=== PATIENT | male | born 1950 | race Caucasian/White ===

== ENCOUNTER → 2019-04-02 08:03 | Outpatient (BNVA) | payer OTHER, SELFPAY | PROVIDERS: Visit Provider Nurse Practitioner | DX: M47.819 Spondylosis without myelopathy or radiculopathy, site unspecified (principal); M51.36 Other intervertebral disc degeneration, lumbar region; G60.9 Hereditary and idiopathic neuropathy, unspecified; Z79.891 Long term (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 of opiate analgesic | CPT/HCPCS: 99213 ==

== ENCOUNTER → 2019-09-30 10:15 | Outpatient (BNVA) | payer OTHER, SELFPAY | PROVIDERS: PCP Emergency Medicine Emergency Medical Services; Visit Provider Anesthesiology | DX: M51.36 Other intervertebral disc degeneration, lumbar region (principal); M47.819 Spondylosis without myelopathy or radiculopathy, site unspecified; M54.9 Dorsalgia, unspecified; M50.30 Other cervical disc degeneration, unspecified cervical region; G60.9 Hereditary and idiopathic neuropathy, unspecified; Z79.891 Long term (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 of opiate analgesic | CPT/HCPCS: 99214 ==

== ENCOUNTER 2019-10-21 14:42 | Outpatient (CLI) | payer OTHER, SELFPAY ==
[2019-10-21 15:11] LABS: Basophils # 0.1 10^3/uL (0.0-0.1); Eosinophils # 0.2 10^3/uL (0.0-0.8); Eosinophils % 2.9 %; Hematocrit 42.4 % (42.0-52.0); Hemoglobin 13.6 g/dL (11.7-16.6); Lymphocytes # 2.3 10^3/uL (0.8-4.8); Lymphocytes % 33.8 %; Mean Corpuscular HGB Conc 32.1 g/dL (30.0-36.0); Mean Corpuscular Hemoglobin 28.9 pg (28.0-34.0); Mean Platelet Volume 9.9 fL (7.4-10.4); Monocytes # 0.5 10^3/uL (0.2-0.9); Monocytes % 7.1 %; Neutrophils # 3.79 10^3/uL (1.8-7.7); Neutrophils % 54.9 %; Nucleated Red Blood Cells % 0 %; Platelet Count 265 10^3/cmm (130-400); Red Blood Count 4.71 10^6/uL (4.1-5.3); Red Cell Distribution Width 12.6 % (12.1-15.1); White Blood Count 6.9 10^3/uL (4.0-10.0)
[2019-10-22 16:24] LABS: Bermuda Class 0; Bermuda Grass (G2) Ige <0.10 kU/L; Cat Dander (E1) Ige <0.10 kU/L; Cat Dander Class 0; Common Ragweed (Short) (W1) Ig 0.91 kU/L; Dog Dander (E5) Ige <0.10 kU/L; Dog Dander Class 0; Elm (T8) Ige <0.10 kU/L; Elm Class 0; English Plantain (W9) Ige 0.22 kU/L; English Plantain Class 0/1; Immunoglobulin E 586 kU/L (<OR=114); Immunoglobulin E 624 kU/L (<OR=114); Johnson Grass (G10) Ige 0.22 kU/L; Johnson Grass Cl 0/1; June Grass Class 0; June Grass(Kentucky Blue) (G8) <0.10 kU/L; Lamb'S Quarters (Goose Foot) 0.14 kU/L; Lamb'S Quarters Class 0/1; Maple (Box Elder) (T1) Ige <0.10 kU/L; Maple Class 0; Meadow Fescue (G4) Ige <0.10 kU/L; Meadow Fescue Class 0; Oak (T7) Ige 0.18 kU/L; Oak Class 0/1; Orchard Grass (Cocksfoot) (G3) <0.10 kU/L; Perennial Rye Grass (G5) Ige <0.10 kU/L; Perennial Rye Grass Class 0; Ragweeed Class 2; Rough Marsh Elder (W16) Ige 0.85 kU/L; Rough Marsh Elder Class 2; Sweet Vernal Class 0; Sweet Vernal Grass (G1) Ige <0.10 kU/L; Timothy Grass (G6) Ige 0.22 kU/L; Timothy Grass Class 0/1
[2019-10-23 16:44] LABS: Alternaria Alternata (M6) Ige <0.10 kU/L; Alternaria Class 0; D. Farinae Class 2; Dermatophagoides Class 2; Dermatophagoides Farinae (D2) 2.93 kU/L; Dermatophagoides Pteronyssinus 1.86 kU/L; House Dust (Greer) (H1) Ige 0.49 kU/L; House Dust (Hollister- Stier) 1.95 kU/L; House Dust Class 1; House Dust Class 2; Mucor Racemosus Class 0; Penicillium Class 0; Penicillium Notatum (M1) Ige <0.10 kU/L
== END 2019-10-21 14:43 | disposition home or self-care (01) ==
LOC: LAB 14:43
PROVIDERS: PCP Emergency Medicine Emergency Medical Services; Visit Provider Internal Medicine Pulmonary Disease
DX: R06.02 Shortness of breath (principal); M79.89 Other specified soft tissue disorders
CPT/HCPCS: 82785; 85025; 86003

== ENCOUNTER → 2019-11-09 09:57 | Outpatient (BNVA) | payer OTHER, SELFPAY | PROVIDERS: PCP Emergency Medicine Emergency Medical Services; Visit Provider Internal Medicine | DX: Z11.59 Encounter for screening for other viral diseases (principal) | CPT/HCPCS: 87635 ==

== ENCOUNTER 2019-11-12 09:15 | Outpatient (CLI) | payer OTHER, SELFPAY ==
--- NOTE | 2019-11-12 09:30 | USCV_ITS ---
Brody Phan Age: 69 Gender: M : 1950 Exam Date: 11/12/2019 09:26 Ordering Phys: Fazal Bello MD Technologist: Tonia Victoria [place] [facility] [place] SOB BP: 130 / 70 HR: 93 Rhythm: Sinus Technical Quality: Adequate MEASUREMENTS (Male / Female) Normal Values 2D ECHO LV Diastolic Diameter PLAX 3.4 cm 4.2 - 5.9 / 3.9 - 5.3 cm LV Systolic Diameter PLAX 3.0 cm LV Chamber Size 3.5 cm IVS Diastolic Thickness 1.8 cm 0.6 - 1.0 / 0.6 - 0.9 cm IVS Systolic Thickness 1.7 cm LVPW Diastolic Thickness 1.3 cm 0.6 - 1.0 / 0.6 - 0.9 cm LVPW Systolic Thickness 1.6 cm RV Chamber Size 3.8 cm LVOT Diameter 2.0 cm LV Ejection Fraction 2D Teich 22.8 % LV Ejection Fraction MOD 2C 80.2 % LV Ejection Fraction 2C AL 80.8 % LA Diameter 4.2 cm LA Width 2.8 cm LA Height 4.0 cm RA Width 3.7 cm RA Height 3.7 cm Aorta at Sinotubular Diameter 3.5 cm M-MODE LV Diastolic Diameter MM 5.1 cm 4.2 - 5.9 / 3.9 - 5.3 cm LV Systolic Diameter MM 2.8 cm LV Ejection Fraction MM Teich 77.2 % IVS Diastolic Thickness MM 0.9 cm 0.6 - 1.0 / 0.6 - 0.9 cm IVS Systolic Thickness MM 1.5 cm LVPW Diastolic Thickness MM 0.8 cm 0.6 - 1.0 / 0.6 - 0.9 cm LVPW Systolic Thickness MM 2.1 cm RV Diastolic Diameter MM 1.1 cm Aortic Annulus Diameter 3.2 cm LA Ao Ratio MM 1.3 MV E Point Septal Separation 0.7 cm DOPPLER AV Peak Velocity 158.0 cm/s LVOT Peak Velocity 110.0 cm/s AV Area Cont Eq vti 2.4 cm squared AV Area Cont Eq pk 2.3 cm squared MV Area PHT 3.7 cm squared Mitral E to A Ratio 0.8 MV E' Velocity 10.0 cm/s Mitral E to MV E' Ratio 8.0 Mitral E to LV E' Lateral Ratio 8.1 Mitral E to LV E' Septal Ratio 8.0 TR Peak Velocity 147.6 cm/s TR Peak Gradient 8.7 mmHg TR Mean Velocity 115.9 cm/s TR Mean Gradient 5.5 mmHg TR Velocity Time Integral 34.3 cm PV Peak Velocity 70.0 cm/s RV Acceleration Time 0.2 s RV Ejection Time 0.3 s RV AcT/ET 0.5 FINDINGS Left Ventricle Normal left ventricular size, systolic function and wall thickness, with no regional wall motion abnormalities. Left ventricular ejection fraction is estimated at 64%. Normal diastolic function. Right Ventricle Normal right ventricular size and systolic function. Right Atrium Normal right atrial size. Left Atrium Normal left atrial size. Mitral Valve Structurally normal mitral valve. No mitral valve stenosis. Trace mitral valve regurgitation. Aortic Valve Structurally normal trileaflet aortic valve. No aortic valve stenosis. No aortic valve regurgitation. Tricuspid Valve Structurally normal tricuspid valve. Trace to mild tricuspid valve regurgitation. Pulmonic Valve Trace pulmonary valve regurgitation. Pericardium No pericardial effusion. Normal sized inferior vena cava. Aorta Normal size aortic root. CONCLUSIONS 1. Normal left ventricular size, systolic function and wall thickness, with no regional wall motion abnormalities. Left ventricular ejection fraction is estimated at 64%. Normal diastolic function. 2. Normal right ventricular size and systolic function. 3. No significant valvular abnormality. 4. No prior similar studies to compare. Faith Lenz MD (Electronically Signed) Final Date: 14 November 2019 14:03 S
--- NOTE | 2019-11-12 13:04 | PFTS_ITS ---
Date of Study:11/12/19 Date of Dictation: MECHANICS: Forced vital capacity (FVC) is normal. Forced expiratory volume in one second (FEV1) is normal. FEV1/FVC is normal. FLOW VOLUME LOOP: There is no peak in the peak expiratory flow. The flow volume loop could be consistent with fixed airway obstruction. LUNG VOLUMES: Total lung capacity (TLC) is normal. Residual volume (RV) is normal. DIFFUSING CAPACITY FOR CARBON MONOXIDE: Normal. INTERPRETATION: Spirometry is normal. Lung volumes normal. Gas exchange (DLCO) is normal. The shape of the flow volume loop could be consistent with fixed airway obstruction. Correlate clinically. MTDD
== END 2019-11-12 09:16 | disposition home or self-care (01) ==
LOC: US 09:18
PROVIDERS: PCP Emergency Medicine Emergency Medical Services; Visit Provider Internal Medicine Pulmonary Disease
DX: R06.02 Shortness of breath (principal); M79.89 Other specified soft tissue disorders
CPT/HCPCS: 93306; 94010; 94726; 94729

== ENCOUNTER → 2019-11-26 09:33 | Outpatient (BNVA) | payer OTHER, SELFPAY | PROVIDERS: PCP Emergency Medicine Emergency Medical Services; Visit Provider Anesthesiology | DX: M51.36 Other intervertebral disc degeneration, lumbar region (principal); M47.819 Spondylosis without myelopathy or radiculopathy, site unspecified; M54.9 Dorsalgia, unspecified; M50.30 Other cervical disc degeneration, unspecified cervical region; G60.9 Hereditary and idiopathic neuropathy, unspecified; Z79.891 Long term (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 of opiate analgesic | CPT/HCPCS: 99214 ==

== ENCOUNTER 2019-12-17 08:03 | Outpatient (CLI) | payer MEDICARE, OTHER, SELFPAY ==
--- NOTE | 2019-12-17 08:10 | CT_ITS ---
WS: [id number] CT NECK WITH CONTRAST HISTORY: ESOPHAGEAL OBSTRUCTION TECHNIQUE: Contiguous 5 mm axial images are performed through the neck with intravenous contrast. Sag ittal and coronal reformats are also submitted. All CT scans at [facility] use at least o ne of these dose optimization techniques: automated exposure control; mA and/or kV adjustment per pat ient size (includes targeted exams where dose is matched to clinical indication); or iterative recons truction. CONTRAST: CONTRAST: Omnipaque 300; 95 mL IV. DLP: 809.37 mGy.cm COMPARISON: 01/24/2018 Nasopharynx, oropharynx, hypopharynx and larynx are unremarkable. No soft tissue masses or abnormal e nhancement. Torus tubarius and fossa of Rosenmuller and parapharyngeal fat are normal. No significant lymphadenopathy is identified. Small shrunken thyroid. Parotid glands and the submandibular glands are normal. No enhancing masses. Prior anterior cervical fusion from C5 through T1. Visualized portions of the skull base demonstrate no abnormalities. Orbits and globes are within norm al limits. No soft tissue masses. Visualized paranasal sinuses and mastoid air cells are normal. Lung apices are clear. Several mediastinal and hilar lymph nodes which are subcentimeter. CT/CT neck w con* [id number] IMPRESSION: 1. No neck mass or adenopathy. 2. No obstruction of the airway or esophagus identified.
--- NOTE | 2019-12-17 08:10 | CT_ITS ---
WS: [id number] CT CHEST WITH INTRAVENOUS CONTRAST HISTORY: ESOPHAGEAL OBSTRUCTION TECHNIQUE: Contiguous 5 mm axial imaging performed on the thorax. Coronal and sagittal reformats are submitted. All CT scans at [facility] use at least one of these dose optimization techniq ues: automated exposure control; mA and/or kV adjustment per patient size (includes targeted exams wh ere dose is matched to clinical indication); or iterative reconstruction. CONTRAST: Omnipaque 300; 75 mL IV. DLP: 861.32 mGy.cm COMPARISON: None available. Lungs and central airway: Mild dependent changes at the lung bases. Mild emphysema. A few benign gran ulomata within the lungs. No pneumonia or nodule. Pleura: Normal. No pleural effusion. Heart and pericardium: Cardiac chambers are slightly enlarged. No pericardial effusion. Mediastinum and varsha: There are several small, subcentimeter mediastinal and hilar lymph nodes. No ad enopathy is appreciated. Vessels: Normal size pulmonary arteries. Very mild atherosclerosis aorta with no aneurysm. No coronar y artery calcifications. Chest wall and lower neck: No soft tissue masses. Upper abdomen: Hepatic steatosis. No bile duct dilatation. Prior cholecystectomy. Normal adrenal glan ds. Osseous structures: Marginal osteophytes throughout the thoracic spine. No acute fracture. No osteobl astic or osteolytic bone disease. CT/CT chest w con* [id number] IMPRESSION: 1. Mild chronic emphysema. 2. No pulmonary mass or nodule. 3. Very mild enlargement of the heart. 4. Hepatic steatosis and prior cholecystectomy.
[2019-12-17 09:26] LABS: Blood Urea Nitrogen 11 mg/dL (8-23)
[2019-12-17] MEDS: iohexol 300 mg/mL 100 mL Btl IV (09:54)
== END 2019-12-17 08:04 | disposition home or self-care (01) ==
LOC: US 08:06
PROVIDERS: PCP Emergency Medicine Emergency Medical Services; Visit Provider Specialist
DX: K22.2 Esophageal obstruction (principal); J43.9 Emphysema, unspecified; I51.7 Cardiomegaly; K76.0 Fatty (change of) liver, not elsewhere classified; Z90.49 Acquired absence of other specified parts of digestive tract
CPT/HCPCS: 36415; 70491; 71260; 82565; 84520

== ENCOUNTER → 2020-01-26 09:22 | Outpatient (BNVA) | payer OTHER, SELFPAY | PROVIDERS: PCP Emergency Medicine Emergency Medical Services; Visit Provider Anesthesiology | DX: M54.41 Lumbago with sciatica, right side (principal); M54.42 Lumbago with sciatica, left side; M51.36 Other intervertebral disc degeneration, lumbar region; M47.819 Spondylosis without myelopathy or radiculopathy, site unspecified; M54.9 Dorsalgia, unspecified; M50.30 Other cervical disc degeneration, unspecified cervical region; Z79.891 Long term (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 of opiate analgesic | CPT/HCPCS: 99213; 99214 ==

== ENCOUNTER → 2020-03-29 10:05 | Outpatient (BNVA) | payer OTHER, SELFPAY | PROVIDERS: PCP Emergency Medicine Emergency Medical Services; Visit Provider Anesthesiology | DX: G89.29 Other chronic pain (principal); M51.36 Other intervertebral disc degeneration, lumbar region; M47.819 Spondylosis without myelopathy or radiculopathy, site unspecified; M54.9 Dorsalgia, unspecified; M50.30 Other cervical disc degeneration, unspecified cervical region; Z79.891 Long term (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 of opiate analgesic | CPT/HCPCS: 99214 ==

== ENCOUNTER 2020-04-26 14:35 | Outpatient (CLI) | payer OTHER, SELFPAY | END 2020-04-26 14:36 | disposition home or self-care (01) | LOC: SPT 14:37 | PROVIDERS: PCP Emergency Medicine Emergency Medical Services; Visit Provider Orthopaedic Surgery | DX: Z46.89 Encounter for fitting and adjustment of other specified devices (principal); G56.03 Carpal tunnel syndrome, bilateral upper limbs | CPT/HCPCS: 97760; L3908 ==

== ENCOUNTER → 2020-05-24 08:44 | Outpatient (BNVA) | payer OTHER, SELFPAY | PROVIDERS: PCP Emergency Medicine Emergency Medical Services; Visit Provider Anesthesiology | DX: G89.29 Other chronic pain (principal); M50.30 Other cervical disc degeneration, unspecified cervical region; M51.36 Other intervertebral disc degeneration, lumbar region; M47.819 Spondylosis without myelopathy or radiculopathy, site unspecified; M54.9 Dorsalgia, unspecified; Z79.891 Long term (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 of opiate analgesic | CPT/HCPCS: 99214 ==

== ENCOUNTER 2020-05-24 11:16 | Outpatient (CLI) | payer OTHER, SELFPAY ==
--- NOTE | 2020-05-24 11:20 | XRR_ITS ---
PROCEDURE INFORMATION: Exam: XR Right Hand Exam date and time: 05/24/2020 11:36 AM Age: 70 years old Clinical indication: Pain; Other: Stiffness; Hand; Bilateral; Prior surgery; Additional info: Bilateral hand joints and morning stiffness TECHNIQUE: Imaging protocol: XR Right hand. Views: 3 or more views. COMPARISON: DX Hand 3 views, RIGHT* [id number] 04/11/2020 12:55 PM FINDINGS: Bones/joints: No fracture, dislocation or other acute bone or joint abnormalities are seen in the right hand. Moderate chronic degenerative changes are present predominantly in the 1st carpometacarpal, 1st metacarpophalangeal and the DIP joints with joint space narrowing sclerosis and tiny osteophytes. No destructive changes are seen. Soft tissues: Normal. XR/XR hand RT min 3V* [id number] IMPRESSION: Moderate chronic DJD. No acute abnormality.
--- NOTE | 2020-05-24 11:20 | XRR_ITS ---
PROCEDURE INFORMATION: Exam: XR Left Hand Exam date and time: 05/24/2020 11:38 AM Age: 70 years old Clinical indication: Pain; Other: Stiffness; Hand; Bilateral; Additional info: Bilateral hand joints and morning stiffness TECHNIQUE: Imaging protocol: XR Left hand. Views: 3 or more views. COMPARISON: DX Hand 3 views, LEFT* [id number] 04/11/2020 12:55 PM FINDINGS: Bones/joints: No fracture, dislocation or other acute bone or joint abnormalities are seen in the left hand. [id number] chronic degenerative changes are present predominantly in the 1st carpometacarpal, 1st metacarpophalangeal and the DIP joints with joint space narrowing sclerosis and tiny osteophytes. No destructive changes are seen. Soft tissues: Normal. XR/XR hand LT min 3V* [id number] IMPRESSION: Bkil-je-[id number] chronic DJD. No acute abnormality.
[2020-05-24 12:13] LABS: Basophils # 0.1 10^3/uL (0.0-0.1); Eosinophils # 0.3 10^3/uL (0.0-0.8); Eosinophils % 5.5 %; Hematocrit 41.2 % (42.0-52.0); Hemoglobin 13.2 g/dL (11.7-16.6); Lymphocytes # 1.8 10^3/uL (0.8-4.8); Mean Corpuscular Hemoglobin 28.3 pg (28.0-34.0); Mean Corpuscular Volume 88.2 fL (80-94); Mean Platelet Volume 9.8 fL (7.4-10.4); Monocytes # 0.4 10^3/uL (0.2-0.9); Monocytes % 7.4 %; Neutrophils # 3.16 10^3/uL (1.8-7.7); Neutrophils % 54.6 %; Nucleated Red Blood Cells % 0 %; Platelet Count 218 10^3/cmm (130-400); Red Blood Count 4.67 10^6/uL (4.1-5.3); Red Cell Distribution Width 12.3 % (12.1-15.1); White Blood Count 5.8 10^3/uL (4.0-10.0)
[2020-05-24 12:36] LABS: Alanine Aminotransferase 15 U/L (0-41); Albumin Level 4.3 g/dL (3.5-5.2); Alkaline Phosphatase 68 IU/L (40-130); Anion Gap 12.5 (5-19); Aspartate Amino Transferase 16 U/L (0-40); Blood Urea Nitrogen 16 mg/dL (8-23); C Reactive Protein 4.7 mg/L (0.0-4.9); Carbon Dioxide 27 mmol/L (22-29); Chloride 102 mmol/L (98-107); Globulin 2.8 g/dL (1.3-4.6); Glucose 100 mg/dL (65-115); Osmolality Calculated 285 mOsm/kg (285-295); Potassium 4.5 mmol/L (3.5-5.1); Sodium 137 mmol/L (136-145); Total Bilirubin 0.8 mg/dL (0.15-1.2); Total Protein 7.1 g/dL (6.6-8.7)
[2020-05-24 12:54] LABS: Urine Creatinine 123 mg/dL (39-259); Urine Protein Random 10 mg/dL
[2020-05-24 13:05] LABS: Add Urine Microscopic? YES; Bilirubin Urine Neg (Negative); Blood Urine 2+ (Negative); Glucose Urine UA Norm (Normal); Ketones Urine Negative (Negative); Leukocyte Esterase Urine Negative (Negative); Nitrate Urine Negative (Negative); Protein Urine Neg (Negative); Specific Gravity, Urine 1.025 (1.005-1.030); Urine Appearance Clear (CLEAR); Urine Color Yellow (Yellow); Urobilinogen Urine Norm (Negative); pH Urine 5 (5-7)
[2020-05-24 13:28] LABS: Erythrocyte Sedimentation Rate 13 mm/hr (0-10)
[2020-05-24 13:30] LABS: Add Urine Culture? No; Bacteria Urine TRACE /hpf
[2020-05-25 13:58] LABS: Anti-Double Strand DNA AB 2 IU/mL; Jo-1 Antibody <1.0 NEG AI (<1.0 NEG); SM/RNP Antibodies <1.0 NEG AI (<1.0 NEG); SS-B/LA IGG <1.0 NEG AI (<1.0 NEG); Scleroderma Ab(Scl-70) Ab <1.0 NEG AI (<1.0 NEG); Ss-A/Ro Igg <1.0 NEG AI (<1.0 NEG)
== END 2020-05-24 11:17 | disposition home or self-care (01) ==
PROVIDERS: PCP Emergency Medicine Emergency Medical Services; Visit Provider Internal Medicine Pulmonary Disease
DX: M25.642 Stiffness of left hand, not elsewhere classified (principal); M25.641 Stiffness of right hand, not elsewhere classified; M19.042 Primary osteoarthritis, left hand; M19.041 Primary osteoarthritis, right hand
CPT/HCPCS: 36415; 73130; 80053; 81001; 82570; 84156; 85025; 85651; 86140; 86225; 86235

== ENCOUNTER 2020-06-06 20:00 | Outpatient (CLI) | payer OTHER, SELFPAY | END 2020-06-06 20:01 | disposition home or self-care (01) | LOC: SLEEP 06-07 08:37 | PROVIDERS: PCP Emergency Medicine Emergency Medical Services; Visit Provider Emergency Medicine Emergency Medical Services | DX: G47.30 Sleep apnea, unspecified (principal) | CPT/HCPCS: 95811 ==

== ENCOUNTER → 2020-06-13 11:39 | Outpatient (BNVA) | payer OTHER, SELFPAY | PROVIDERS: PCP Emergency Medicine Emergency Medical Services; Visit Provider Specialist | DX: M25.531 Pain in right wrist (principal); M25.532 Pain in left wrist; M19.041 Primary osteoarthritis, right hand; M19.042 Primary osteoarthritis, left hand; G56.23 Lesion of ulnar nerve, bilateral upper limbs; G56.03 Carpal tunnel syndrome, bilateral upper limbs; Z98.1 Arthrodesis status; Z87.891 Personal history of nicotine dependence | CPT/HCPCS: 95886; 95910; 99202 ==

== ENCOUNTER 2020-06-13 14:13 | Outpatient (CLI) | payer OTHER, SELFPAY ==
--- NOTE | 2020-06-13 14:21 | XRR_ITS ---
PROCEDURE INFORMATION: Exam: XR Left Hand Exam date and time: 06/13/2020 2:30 PM Age: 70 years old Clinical indication: Pain and injury or trauma; Blunt trauma (contusions or hematomas); Left; Injury date: 2 weeks ago; Patient HX: Fall on hand, injured 3rd digit distal; Additional info: M79.643 - pain in unspecified hand TECHNIQUE: Imaging protocol: XR Left hand. Views: 3 or more views. COMPARISON: CR XR hand LT min 3V* [id number] 05/24/2020 11:34 AM FINDINGS: Bones/joints: There is an avulsion fracture at the dorsal base of the 3rd distal phalanx, with a few mm distraction. Soft tissues: Soft tissue swelling at the 3rd digit distally. XR/XR hand LT min 3V* [id number] IMPRESSION: Avulsion fracture at the dorsal base of the 3rd distal phalanx.
== END 2020-06-13 14:14 | disposition home or self-care (01) ==
LOC: RAD 14:16
PROVIDERS: PCP Emergency Medicine Emergency Medical Services; Visit Provider Specialist
DX: S62.633A Displaced fracture of distal phalanx of left middle finger, initial encounter for closed fracture (principal); X58.XXXA Exposure to other specified factors, initial encounter
CPT/HCPCS: 73130

== ENCOUNTER → 2020-07-27 12:34 | Outpatient (BNVA) | payer OTHER, SELFPAY | PROVIDERS: PCP Emergency Medicine Emergency Medical Services; Visit Provider Anesthesiology | DX: G89.29 Other chronic pain (principal); M51.36 Other intervertebral disc degeneration, lumbar region; M54.9 Dorsalgia, unspecified; M47.819 Spondylosis without myelopathy or radiculopathy, site unspecified; M50.30 Other cervical disc degeneration, unspecified cervical region; M19.041 Primary osteoarthritis, right hand; M19.042 Primary osteoarthritis, left hand; Z98.1 Arthrodesis status; Z79.891 Long term (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 of opiate analgesic | CPT/HCPCS: 99214 ==

== ENCOUNTER → 2020-08-30 09:24 | Outpatient (BNVA) | payer OTHER, SELFPAY | PROVIDERS: PCP Emergency Medicine Emergency Medical Services; Referring Provider Emergency Medicine Emergency Medical Services; Visit Provider Orthopaedic Surgery | DX: M54.5 Low back pain (principal); M48.062 Spinal stenosis, lumbar region with neurogenic claudication | CPT/HCPCS: 72120 ==

== ENCOUNTER → 2020-09-06 12:55 | Outpatient (BNVA) | payer OTHER, SELFPAY | PROVIDERS: PCP Emergency Medicine Emergency Medical Services; Visit Provider Anesthesiology | DX: G89.29 Other chronic pain (principal); M51.36 Other intervertebral disc degeneration, lumbar region; M48.062 Spinal stenosis, lumbar region with neurogenic claudication; M47.819 Spondylosis without myelopathy or radiculopathy, site unspecified; M50.30 Other cervical disc degeneration, unspecified cervical region; Z79.891 Long term (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 of opiate analgesic; Z87.891 Personal history of nicotine dependence | CPT/HCPCS: 99214 ==

== ENCOUNTER 2020-10-14 09:44 | Outpatient (CLI) | payer OTHER, SELFPAY ==
[2020-10-14 11:07] LABS: Thyroid Stimulating Hormone 2.33 uIU/mL (0.27-4.20)
[2020-10-14 12:14] LABS: Free T4 Free Thyroxine 1.76 ng/dL (0.82-1.77); T3 Free 2.5 PG/ML (2.0-4.4)
== END 2020-10-14 09:45 | disposition home or self-care (01) ==
LOC: LAB 09:47
PROVIDERS: PCP Emergency Medicine Emergency Medical Services; Visit Provider Chiropractor
DX: E03.9 Hypothyroidism, unspecified (principal)
CPT/HCPCS: 36415; 84439; 84443; 84481

== ENCOUNTER → 2020-10-21 13:44 | Outpatient (BNVA) | payer OTHER, SELFPAY | PROVIDERS: PCP Emergency Medicine Emergency Medical Services; Visit Provider Nurse Practitioner | DX: M51.36 Other intervertebral disc degeneration, lumbar region (principal); M48.062 Spinal stenosis, lumbar region with neurogenic claudication; M19.041 Primary osteoarthritis, right hand; M47.819 Spondylosis without myelopathy or radiculopathy, site unspecified; M50.30 Other cervical disc degeneration, unspecified cervical region; G60.9 Hereditary and idiopathic neuropathy, unspecified; Z98.1 Arthrodesis status; Z79.891 Long term (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 of opiate analgesic | CPT/HCPCS: 99213 ==

== ENCOUNTER 2020-10-22 15:03 | Emergency (ER) | payer OTHER, MEDICARE, SELFPAY ==
[2020-10-22 15:20] VITALS: BP 180/68; PULSE 74; RESP 16; TEMP 36.8; O2SAT 96; BMI 21.3
--- NOTE | 2020-10-22 15:36 | XRR_ITS ---
PROCEDURE INFORMATION: Exam: XR Right Shoulder Exam date and time: 10/22/2020 3:36 PM Age: 70 years old Clinical indication: Injury or trauma; Fall; Blunt trauma (contusions or hematomas); Shoulder; Right; Additional info: Fall/pain TECHNIQUE: Imaging protocol: XR Right shoulder. Views: 2 or more views. COMPARISON: CT chest w con* [id number] 12/17/2019 9:54 AM FINDINGS: Bones/joints: Negative for fracture dislocation. Soft tissues: Normal. XR/XR shoulder RT min 2V* [id number] IMPRESSION: Negative for fracture or dislocation.
--- NOTE | 2020-10-22 15:36 | XRR_ITS ---
PROCEDURE INFORMATION: Exam: XR Thoracic Spine Exam date and time: 10/22/2020 3:36 PM Age: 70 years old Clinical indication: Injury or trauma; Fall; Blunt trauma (contusions or hematomas); Additional info: Pain/fall TECHNIQUE: Imaging protocol: XR of the thoracic spine. Views: 3 views. COMPARISON: CT cervical spin wo con* [id number] 10/22/2020 3:46 PM FINDINGS: Bones/joints: No acute fracture. Sequela of ACDF in the lower cervical spine. Normal alignment. Soft tissues: Unremarkable. XR/XR thoracic spine 3V* [id number] IMPRESSION: No acute findings.
--- NOTE | 2020-10-22 15:37 | ED_ITS ---
HPI - Fall General: Chief Complaint: Fall Stated Complaint: NECK PAIN/FALL Time Seen by Provider: 10/22/20 15:28 Source: patient and family Mode of arrival: ambulatory Limitations: no limitations History of Present Illness: HPI Narrative: Patient is a nice 70-year-old male who presents to ED today along with family for evaluation following a fall that occurred yesterday. Patient tells me he was outside and believes he tripped over a rock. He states he falls a lot secondary to gait and balance. He denies lightheadedness or dizziness prior to the fall. No chest pain, shortness of breath, difficulty breathing. He is supposed to be walking with a walker however was not yesterday. He states since the fall he has had pain to his neck, upper back, and right shoulder blade. No other injury sustained at this time. Patient denies striking his head or LOC. He has been ambulatory since the fall without difficulty. MD complaint: fall Onset (ago): day(s) (yesterday) Fall from: standing Fall witnessed: no Place fall occurred: home Loss of consciousness: None Prolonged down time: no Symptoms prior to fall: none Context: tripped/slipped Location of injury: neck and back Location of injury - extremities: Right: shoulder Associated symptoms-after fall: Reports no associated symptoms and neck pain; Denies abdominal pain, chest pain, confusion, headache(s), lightheadedness or vertigo Review of Systems Const: Denies: fever(s), chills, body aches, fatigue or malaise Eyes: Denies: change in vision, blurry vision, photophobia, floaters or seeing flashes Card: Denies: chest pain, palpitations, lightheadedness, syncope or pre- syncope Resp: Denies: dyspnea GI: Denies: abdominal pain, nausea or vomiting Musc: Reports: neck pain, back pain and joint pain (R shoulder); Denies: extremity pain, extremity swelling or joint swelling Neuro: Reports: frequent falls; Denies: headache(s), numbness in extremities, weakness in extremities, sensory changes, dizziness, vertigo, confusion, Slurred speech present or difficulty communicating thoughts PFS ED PFSH: Medical History DDD (degenerative disc disease), lumbar Encounter for long-term opiate analgesic use Facet joint disease Idiopathic neuropathy Surgical History Hx of cholecystectomy 12/2012 and umbilical hernia Hx of fusion of cervical spine [facility] 2000 C5-6 C6-7 Family History Mother , natural causes Cancer skin cancer Father Cancer prostate cancer Social History Smoking and tobacco status: former smoker Quit status (tobacco): has quit using tobacco Year quit tobacco: 1969 - 2PPD x 5 Years Second hand smoke exposure: No Smoking risk assessment/counseling performed?: No Alcohol intake: never Lives independently: Yes Household members: significant other Housing: House Marital status: service: Yes Current occupational status: retired Pets and animals: Yes History of recent travel: No Current gender identity: Male Physical Exam Const: COMMON NORMALS: no acute distress, average body habitus, patient oriented x3, no limitations, healthy appearing, alert and well nourished GENERAL APPEARANCE: cooperative ORIENTATION/CONSCIOUSNESS: Yes awake, Yes oriented to person, Yes oriented to place and Yes oriented to time Neck/C-Spine: CERVICAL SPINE: Yes pain with cervical ROM, Yes Cervical spine tenderness (mid to lower c spine) and No step off deformity OTHER: wearing soft cervical collar Resp: COMMON NORMALS: normal respiratory effort and clear to auscultation bilaterally AUSCULTATION: clear to auscultation bilaterally Cardio: COMMON NORMALS: regular rate and regular rhythm RATE: regular rate RHYTHM: regular rhythm Back/Pelvis: THORACIC SPINE/UPPER BACK: Yes thoracic spinal tenderness (upper T spine) and Yes paraspinal muscle tenderness Thoracic paraspinal muscle tenderness: right LUMBAR SPINE/LOWER BACK: Yes normal to inspection, No lumbar spinal tenderness and No paraspinal muscle tenderness Extremity: GENERAL: Yes normal exam except as noted LEFT UPPER EXTREMITY: Yes shoulder joint (TTP scapula) Left shoulder joint: Yes ROM (limited past 90 deg flex/abduction ) and Yes neurovascular exam (normal) Neuro: ANGELO COMA SCALE: document GCS findings Albert Lea coma scale eye opening: Spontaneous Angelo coma scale verbal response: Orientated Albert Lea coma scale motor response: Obey commands Albert Lea coma scale total score: 15 COMMON NORMALS: patient oriented x3, CN's II-XII intact bilaterally, moves all extremities, no focal motor deficits, no sensory deficits noted and gait normal SENSORIUM/ORIENTATION: Yes alert, Yes oriented to person, Yes oriented to place and Yes oriented to time Skin: COMMON NORMALS: no rashes or lesions noted GENERAL SKIN EXAM: no rashes or lesions noted TRAUMA: no lacerations or abrasions Course Vital Signs: Vital signs: Vital Signs Temperature 98.6 F 10/22/20 16:57 Pulse Rate 63 10/22/20 16:57 Respiratory Rate 18 10/22/20 16:57 Blood Pressure 129/69 10/22/20 16:57 Pulse Oximetry 93 10/22/20 16:57 MDM - Fall MDM Narrative: Medical decision making narrative: CT/XRs negative. [facility] if [facility]/symptoms persist. Return to ED precautions given. Imaging Data^: CT Head: Radiologist's impression: [address] [address] [address] Scan Report Signed Patient: Phan Skinner Unit #: [id number] : 1950 Age/Sex: 70 / M ADM Date: 10/22/20 Loc: ER Room/Bed: Attending Dr: Ordering Provider/Ordering MD: Kelly June Date of Service: 10/22/20 Procedure(s): CT head wo con* [id number] Accession Number(s): [id number] Report Number: [id number] PROCEDURE INFORMATION: Exam: CT Head Without Contrast Exam date and time: 10/22/2020 3:36 PM Age: 70 years old Clinical indication: Injury or trauma; Blunt trauma (contusions or hematomas); Without loss of consciousness; Patient HX: Fall while walking denies loc; Additional info: Trauma/fall TECHNIQUE: Imaging protocol: Computed tomography of the head without contrast. Radiation optimization: All CT scans at this facility use at least one of these dose optimization techniques: automated exposure control; mA and/or kV adjustment per patient size (includes targeted exams where dose is matched to clinical indication); or iterative reconstruction. COMPARISON: [place] [id number] 01/24/2018 10:15 AM RADIATION DOSE METRICS: Total DLP (mGy-cm): 933.88 FINDINGS: Brain: No hemorrhage. No cerebral edema. No mass effect/midline shift. 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 Cerebral ventricles: No ventriculomegaly. Paranasal sinuses: Visualized sinuses are unremarkable. No fluid levels. Mastoid air cells: Visualized mastoid air cells are well aerated. Bones/joints: Unremarkable. No acute fracture. Soft tissues: Unremarkable. CT/CT head wo con* [id number] IMPRESSION: No acute intracranial abnormality. Radiation Dose CTDIVOL = (mGy): DLP = 933.88 (mGy-cm) Dictated By: Evens Biswas DO Signed By: Evens Biswas DO Signed Date/Time: 10/22/20 1608 DD/ 160 CT cervical: Radiologist's impression: [address] [address] [address] Scan Report Signed Patient: Phan Skinner Unit #: [id number] : 1950 Age/Sex: 70 / M ADM Date: 10/22/20 Loc: ER Room/Bed: Attending Dr: Ordering Provider/Ordering MD: Kelly June Date of Service: 10/22/20 Procedure(s): CT cervical spin wo con* [id number] Accession Number(s): [id number] Report Number: [id number] PROCEDURE INFORMATION: Exam: CT Cervical Spine Without Contrast Exam date and time: 10/22/2020 3:36 PM Age: 70 years old Clinical indication: Injury or trauma; Blunt trauma; Prior surgery; Surgery date: 6+ months; Surgery type: Fusion; Patient HX: Fall while walking; Additional info: Fall/pain TECHNIQUE: Imaging protocol: Computed tomography images of the cervical spine without contrast. Radiation optimization: All CT scans at this facility use at least one of these dose optimization techniques: automated exposure control; mA and/or kV adjustment per patient size (includes targeted exams where dose is matched to clinical indication); or iterative reconstruction. COMPARISON: MRI Cervical Spine w/o* [id number] 03/31/2014 8:10 AM RADIATION DOSE METRICS: Total DLP (mGy-cm): 689.17 FINDINGS: Bones/joints: No acute fracture. Normal alignment. Sequela of ACDF hardware spanning C5-T1. Discs/Spinal canal/Neural foramina: No significant disc protrusion. No severe spinal canal stenosis. No significant neural foraminal narrowing. Lungs: Lung apices are normal. Soft tissues: Unremarkable. CT/CT cervical spin wo con* [id number] IMPRESSION: No acute findings. Radiation Dose CTDIVOL = (mGy): DLP = 689.17 (mGy-cm) Dictated By: Evens Biswas DO Signed By: Evens Biswas DO Signed Date/Time: 10/22/20 1610 DD/ 1608 XR R shoulder: Radiologist's impression: [facility] [address] [place] [address] XRay Report Signed Patient: Phan Skinner Unit #: [id number] : 1950 Age/Sex: 70 / M ADM Date: 10/22/20 Loc: ER Room/Bed: Attending Dr: Ordering Provider/Ordering MD: Kelly June Date of Service: 10/22/20 Procedure(s): XR shoulder RT min 2V* [id number] Accession Number(s): [id number] Report Number: [id number] PROCEDURE INFORMATION: Exam: XR Right Shoulder Exam date and time: 10/22/2020 3:36 PM Age: 70 years old Clinical indication: Injury or trauma; Fall; Blunt trauma (contusions or hematomas); Shoulder; Right; Additional info: Fall/pain TECHNIQUE: Imaging protocol: XR Right shoulder. Views: 2 or more views. COMPARISON: CT chest w con* [id number] 12/17/2019 9:54 AM FINDINGS: Bones/joints: Negative for fracture dislocation. Soft tissues: Normal. XR/XR shoulder RT min 2V* [id number] IMPRESSION: Negative for fracture or dislocation. Dictated By: Evens Biswas DO Signed By: Evens Biswas DO Signed Date/Time: 10/22/20 1722 DD/ 1720 XR thoracic: Radiologist's impression: [facility] [address] [place] [id number] XRay Report Signed Patient: Phan Skinner Unit #: [id number] : 1950 Age/Sex: 70 / M ADM Date: 10/22/20 Loc: ER Room/Bed: Attending Dr: Ordering Provider/Ordering MD: Kelly June Date of Service: 10/22/20 Procedure(s): XR thoracic spine 3V* [id number] Accession Number(s): [id number] Report Number: [id number] PROCEDURE INFORMATION: Exam: XR Thoracic Spine Exam date and time: 10/22/2020 3:36 PM Age: 70 years old Clinical indication: Injury or trauma; Fall; Blunt trauma (contusions or hematomas); Additional info: Pain/fall TECHNIQUE: Imaging protocol: XR of the thoracic spine. Views: 3 views. COMPARISON: CT cervical spin wo con* [id number] 10/22/2020 3:46 PM FINDINGS: Bones/joints: No acute fracture. Sequela of ACDF in the lower cervical spine. Normal alignment. Soft tissues: Unremarkable. XR/XR thoracic spine 3V* [id number] IMPRESSION: No acute findings. Dictated By: Evens Biswas DO Signed By: Evens Biswas DO Signed Date/Time: 10/22/201720 DD/ 18 Discharge Plan Discharge Patient Disposition: Home Clinical Impression: Acute pain of right shoulder, Fall on same level from tripping Condition: Stable Prescriptions: No Action simvastatin 40 mg tablet 40 mg PO .one half day RF: 0 aspirin 81 mg tablet,delayed release (DR/EC) 81 mg PO ONCE RF: 0 tamsulosin [Flomax] 0.4 mg capsule 0.4 mg PO ONCE RF: 0 cholecalciferol (vitamin D3) 1,000 unit capsule 1,000 unit PO ONCE RF: 0 multivitamin Tablet 1 tab PO QAM RF: 0 levothyroxine [Synthroid] 125 mcg tablet 125 mcg PO DAILY RF: 0 lisinopril-hydrochlorothiazide 20-12.5 mg tablet 1 tab PO DAILY RF: 0 albuterol sulfate 90 mcg/actuation aerosol powdr breath activated 2 inh INHALATION Q6H PRNRF: 0 Claritin RediTabs 5 mg tablet,disintegrating 5 mg PO BID Qty: 60 RF: 3 montelukast [Singulair] 10 mg tablet 10 mg PO DAILY Qty: 30 RF: 3 (DME) cock up splint See Rx Instructions .Route .MEDSUPPLY Qty: 2 RF: 0 budesonide-formoterol [Symbicort] 160-4.5 mcg/actuation HFA aerosol inhaler 2 puff inhalation BID Qty: 10.2 RF: 3 fluticasone propionate 50 mcg/actuation spray,suspension 1 spray INTRANASAL ONCE PRN (Reason: allergy symptoms) Qty: 100 RF: 3 diclofenac sodium [Voltaren Arthritis Pain] 1 % gel 4 g topical QID Qty: 400 RF: 1 oxycodone-acetaminophen [Percocet] 10-325 mg tablet 1 tab PO QID PRN (Reason: pain) 30 Days Qty: 120 RF: 0 oxycodone-acetaminophen 10-325 mg tablet 1 tab PO .four times daily PRN (Reason: pain) 30 Days Qty: 120 RF: 0 tramadol 50 mg tablet 50 mg PO TID PRN (Reason: pain) 30 Days Qty: 90 RF: 1 pregabalin [Lyrica] 100 mg capsule 100 mg PO TID 30 Days Qty: 90 RF: 1 Discharge Orders: Discharge ED (Routine); Ordered 10/22/20 Ordered By: Kelly June Referrals: Francisco Hirsch, [Primary Care Provider] - Activity Restrictions/Additional Instructions: As we discussed please follow-up with Dr. Hirsch in 1 to 2 weeks for continued pain so he may evaluate further. Coding Level of Care Code ED Promotions Associate for Chg Fwd Exam Comprehensive
[2020-10-22 16:53] VITALS: BP 129/69; PULSE 63; RESP 18; TEMP 37; O2SAT 93
--- NOTE | 2020-10-22 16:56 | PC.NURSE ---
DC instructions given to patient and significant other, voiced full understanding, no further questions, ambulatory to ER entrance with zero difficulties.
[2020-10-22 16:57] VITALS: BP 129/69; PULSE 63; RESP 18; TEMP 37; O2SAT 93
== END 2020-10-22 16:56 | disposition home or self-care (01) ==
PROVIDERS: Emergency Provider Physician Assistant; PCP Emergency Medicine Emergency Medical Services
DX: M25.511 Pain in right shoulder (principal); Z79.82 Long term (current) use of aspirin; Z87.891 Personal history of nicotine dependence; W18.09XA Striking against other object with subsequent fall, initial encounter
CPT/HCPCS: 70450; 72072; 72125; 73030; 99283

== ENCOUNTER → 2020-12-22 09:50 | Outpatient (BNVA) | payer OTHER, MEDICARE, SELFPAY | PROVIDERS: PCP Emergency Medicine Emergency Medical Services; Visit Provider Nurse Practitioner | DX: M51.36 Other intervertebral disc degeneration, lumbar region (principal); M48.062 Spinal stenosis, lumbar region with neurogenic claudication; M47.819 Spondylosis without myelopathy or radiculopathy, site unspecified; M50.30 Other cervical disc degeneration, unspecified cervical region; M19.041 Primary osteoarthritis, right hand; G56.23 Lesion of ulnar nerve, bilateral upper limbs; G60.9 Hereditary and idiopathic neuropathy, unspecified; G56.03 Carpal tunnel syndrome, bilateral upper limbs; Z98.1 Arthrodesis status; Z79.891 Long term (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 of opiate analgesic | CPT/HCPCS: 99213 ==

== ENCOUNTER → 2021-04-04 09:51 | Outpatient (BNVA) | payer OTHER, SELFPAY | PROVIDERS: PCP Emergency Medicine Emergency Medical Services; Visit Provider Anesthesiology | DX: G89.29 Other chronic pain (principal); M51.36 Other intervertebral disc degeneration, lumbar region; M48.062 Spinal stenosis, lumbar region with neurogenic claudication; M47.819 Spondylosis without myelopathy or radiculopathy, site unspecified; M50.30 Other cervical disc degeneration, unspecified cervical region; G60.9 Hereditary and idiopathic neuropathy, unspecified; Z98.1 Arthrodesis status; Z79.891 Long term (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 of opiate analgesic; Z87.891 Personal history of nicotine dependence | CPT/HCPCS: 99214 ==

== ENCOUNTER 2021-06-21 06:00 | Outpatient (RCR) | payer OTHER, SELFPAY | END 2021-07-15 23:59 | disposition home or self-care (01) | LOC: TPT 06:00 | PROVIDERS: PCP Emergency Medicine Emergency Medical Services; Referring Provider Emergency Medicine Emergency Medical Services; Visit Provider Emergency Medicine Emergency Medical Services | DX: G89.29 Other chronic pain (principal); M25.559 Pain in unspecified hip; M54.50 Low back pain, unspecified; Z98.1 Arthrodesis status | CPT/HCPCS: 97110; 97163 ==

== ENCOUNTER 2021-07-16 06:00 | Outpatient (RCR) | payer OTHER, SELFPAY | END 2021-08-15 23:59 | disposition home or self-care (01) | LOC: TPT 06:00 | PROVIDERS: PCP Emergency Medicine Emergency Medical Services; Referring Provider Emergency Medicine Emergency Medical Services; Visit Provider Emergency Medicine Emergency Medical Services | DX: G89.29 Other chronic pain (principal); M54.50 Low back pain, unspecified; M25.559 Pain in unspecified hip; M43.22 Fusion of spine, cervical region | CPT/HCPCS: 97110 ==

== ENCOUNTER → 2021-07-24 11:28 | Outpatient (BNVA) | payer OTHER, SELFPAY | PROVIDERS: PCP Emergency Medicine Emergency Medical Services; Visit Provider Internal Medicine Pulmonary Disease | DX: J45.40 Moderate persistent asthma, uncomplicated (principal); J30.89 Other allergic rhinitis; R94.2 Abnormal results of pulmonary function studies; M19.041 Primary osteoarthritis, right hand; M19.042 Primary osteoarthritis, left hand; Z87.891 Personal history of nicotine dependence | CPT/HCPCS: 99214 ==

== ENCOUNTER 2021-08-16 06:00 | Outpatient (RCR) | payer OTHER, SELFPAY | END 2021-09-14 23:59 | disposition home or self-care (01) | LOC: TPT 06:00 | PROVIDERS: PCP Emergency Medicine Emergency Medical Services; Referring Provider Emergency Medicine Emergency Medical Services; Visit Provider Emergency Medicine Emergency Medical Services | DX: G89.29 Other chronic pain (principal); M25.559 Pain in unspecified hip; M54.50 Low back pain, unspecified; Z98.1 Arthrodesis status | CPT/HCPCS: 97110 ==

== ENCOUNTER 2021-09-15 06:00 | Outpatient (RCR) | payer OTHER, SELFPAY | END 2021-10-15 23:59 | disposition home or self-care (01) | LOC: TPT 06:00 | PROVIDERS: PCP Emergency Medicine Emergency Medical Services; Referring Provider Emergency Medicine Emergency Medical Services; Visit Provider Emergency Medicine Emergency Medical Services | DX: G89.29 Other chronic pain (principal); Z98.1 Arthrodesis status; M54.50 Low back pain, unspecified | CPT/HCPCS: 97032; 97110 ==

== ENCOUNTER → 2022-02-12 09:49 | Outpatient (BNVA) | payer OTHER, SELFPAY | PROVIDERS: PCP Emergency Medicine Emergency Medical Services; Referring Provider Emergency Medicine Emergency Medical Services; Visit Provider Student in an Organized Health Care Education/Training Program | DX: G56.01 Carpal tunnel syndrome, right upper limb (principal) | CPT/HCPCS: 20526; 99204; J3301; J3490 ==

== ENCOUNTER → 2022-05-24 10:40 | Outpatient (BNVA) | payer OTHER, SELFPAY | PROVIDERS: PCP Emergency Medicine Emergency Medical Services; Visit Provider Student in an Organized Health Care Education/Training Program | DX: G56.01 Carpal tunnel syndrome, right upper limb (principal) | CPT/HCPCS: 73130; 99213 ==

== ENCOUNTER → 2022-06-29 10:10 | Outpatient (BNVA) | payer OTHER, SELFPAY | PROVIDERS: PCP Emergency Medicine Emergency Medical Services; Visit Provider Podiatrist Foot & Ankle Surgery | DX: M77.41 Metatarsalgia, right foot (principal); M77.42 Metatarsalgia, left foot; G60.9 Hereditary and idiopathic neuropathy, unspecified; M21.621 Bunionette of right foot; M21.622 Bunionette of left foot; B35.3 Tinea pedis | CPT/HCPCS: 73630; 99204 ==

== ENCOUNTER → 2022-09-27 07:58 | Outpatient (BNVA) | payer OTHER, SELFPAY | PROVIDERS: PCP Emergency Medicine Emergency Medical Services; Visit Provider Podiatrist Foot & Ankle Surgery | DX: B35.3 Tinea pedis (principal); G60.9 Hereditary and idiopathic neuropathy, unspecified | CPT/HCPCS: 99213 ==

== ENCOUNTER → 2022-11-29 07:52 | Outpatient (BNVA) | payer OTHER, SELFPAY | PROVIDERS: PCP Emergency Medicine Emergency Medical Services; Visit Provider Podiatrist Foot & Ankle Surgery | DX: B35.3 Tinea pedis (principal); G60.9 Hereditary and idiopathic neuropathy, unspecified; M21.622 Bunionette of left foot; M21.621 Bunionette of right foot | CPT/HCPCS: 99213 ==

== ENCOUNTER → 2023-07-16 10:10 | Outpatient (BNVA) | payer OTHER, SELFPAY | PROVIDERS: PCP Emergency Medicine Emergency Medical Services; Visit Provider Student in an Organized Health Care Education/Training Program | DX: M19.041 Primary osteoarthritis, right hand (principal); M19.042 Primary osteoarthritis, left hand; G56.03 Carpal tunnel syndrome, bilateral upper limbs | CPT/HCPCS: 20600; 99214; J3301; J3490 ==

== ENCOUNTER 2024-01-29 15:52 | Outpatient (CLI) | payer OTHER, SELFPAY ==
[2024-01-29 16:55] LABS: D Dimer 0.37 ug/mLFEU (0-0.59)
== END 2024-01-29 15:53 | disposition home or self-care (01) ==
PROVIDERS: PCP Emergency Medicine Emergency Medical Services; Visit Provider Internal Medicine Pulmonary Disease
DX: R06.00 Dyspnea, unspecified (principal); R07.9 Chest pain, unspecified
CPT/HCPCS: 36415; 85378

== ENCOUNTER 2024-12-14 09:39 | Emergency (ER) | payer OTHER, SELFPAY ==
--- OUTSIDE RECORDS SUMMARY | 2024-12-10 11:20 | XMS_ITS ---
Author Organization [facility] Address [address] [place] [address] Care Team Providers Care Manager Educational Name Role Phone LAURENT GAYTAN MD Primary Care Provider Unavailab Maxwell Rudd Unavailable [phone] [place], Eugene Harris Unavailable Unavailable Allergies Allergen (clinical drug ingredient) Drug/Non Drug Allergy documented on EMR Reaction Allergy Type Onset Date Status Shellfish (FN) SHELLFISH (uncoded) Unknown Allergy Active Shellfish (FN) Shellfish-derived Products Unknown Drug Allergy Active REASON FOR VISIT 2 Months. UDS. [id number] Medications Medication SIG (Take, Route, Frequency, Duration) Notes Start Date End Date Status Tamsulosin HCl 0.4 MG Capsule 1 capsule Orally Once a day; Duration: 90 Active Vitamin D3 25 MCG (1000 UT) Capsule 1 capsule Orally Once a day Active Multivitamin Active Omeprazole 20 MG Tablet Delayed Release 1 capsule 30 minutes before morning meal Orally 2 x daily Active Simvastatin 40 MG Tablet 1/2 tablet Oral ly Once a day Active oxyCODONE-Acetaminophen 10-325 MG Tablet 1 tablet Orally every 6 hrs; Duration: 30 days As needed Not to exceed 4 per day Fill on 01-12-25 12/10/2024 02/11/2025 Active Levothyroxine Sodium 125 MCG Tablet 1 tablet in the morning on an empty stomach Orally Once a day Active Lisinopril 20 MG Tablet 1 tablet Orally Once a day Active Loratadine 10 MG Tablet 2 tablet Orally Once a day Active oxyCODONE-Acetaminophen 10-325 MG Tablet 1 tablet Orally every 6 hrs; Duration: 30 days As needed Not to exceed 4 per day Fill on 12-13-24 or few days early due to weekend fill 12/10/2024 01/12/2025 Active Albuterol Sulfate (2.5 MG/3ML) 0.083% Nebulization Solution 3 mL as needed Inhalation every 6 hrs As needed Active Albuterol-Budesonide 90-80 MCG/ACT Aerosol 2 puffs as needed Inhalation Six times a day As needed Active hydroCHLOROthiazide 12.5 MG Capsule 1 capsule in the morning Orally Once a day Active Social History Tobacco Use: Social History Observation Description Date Details (start date - stop date) Former Smoker NA - NA Social History Drugs/Alcohol: Social Info Question Answer Notes Alcohol Screen (Audit-C) Did you have a drink containing alcohol in the past year? No Points 0 Interpretation Negative Caffeine Intake: more than 4 cups per day Tobacco Use: Social Info Question Answer Notes Tobacco Control (Standard) Tobacco use: Former smoker Additional Details Category Social Info Options Details Drugs/Alcohol: Do you drink alcohol? No Migrated Social History Migrated Social History Alcoholic beverages? - No, Applying for disability? - No, Currently on disability? - Yes, Drug or substance abuse? - No, Education - Grade School, exposure to toxins/poisonous substances at work - No, Involved in any legal proceedings or lawsuits? - No, Marital Status - , Nonprescription drug use? - No, Participation in detoxification or rehabilitation - No, Smoking - No, Smoking status (MU) - Unknown if ever smoked, Working currently? - No Section Notes: Patient is on disability Vital Signs Height 65 in 12/10/2024 Weight 188.27 lbs 12/10/2024 BMI 31.33 kg/m2 12/10/2024 Height-cm 165.1 cm 12/10/2024 Weight-kg 85.4 kg 12/10/2024 Encounters Encounter Location Date Provider Diagnosis Formerly [facility] [address] [facility] [place] [address] 12/10/2024 Maxwell Newman Chronic pain syndrom e G89.4 ; Other spondylosis with radiculopathy, lumbosacral region M47.27 ; Sacroiliitis, not elsewhere classified M46.1 ; MCC (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 of opiate analgesic Z79.891 and Unspecified abnormalities of gait and mobility R26.9 Assessments Encounter Date Diagnosis (ICD Code) Assessment Notes Treatment Notes Treatment Clinical Notes Section Notes 12/10/2024 Chronic pain syndrome (ICD-10 - G89.4) I had a nice visit with the patient and his regarding his chronic pain issues. He seems to be doing well overall. He continues to find the current medication regimen relatively effective, and it allows him to function at a higher level. We will continue his medications unchanged. We will follow up with him in a couple of months and proceed accordingly. 12/10/2024 Other spondylosis with radiculopathy, lumbosacral region (ICD-10 - M47.27) 12/10/2024 Sacroiliitis, not elsewhere classified (ICD-10 - M46.1) 12/10/2024 MCC (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 of opiate analgesic (ICD-10 - Z79.891) 12/10/2024 Unspecified abnormalities of gait and mobility (ICD-10 - R26.9) 12/10/2024 Other Suni Fierro, am scribing for Dr. Maxwell Newman. I, Dr. Maxwell Newman, personally performed the services described in this documentation, as scribed by Suni Khan, and it is both accurate and complete. Plan Of Treatment Medication Medication Name Sig Start Date Stop Date Notes oxyCODONE-Acetaminophen 10-325 MG Tablet 1 tablet Orally every 6 hrs; Duration: 30 days 12/10/2024 02/11/2025 Fill on 01-12-25 oxyCODONE-Acetaminophen 10-325 MG Tablet 1 tablet Orally every 6 hrs; Duration: 30 days 12/10/2024 01/12/2025 Fill on 12-13-24 or few days early due to weekend fill Treatment Notes Assessment Notes Chronic pain syndrome I had a nice visit with the patient and his regarding his chronic pain issues. He seems to be doing well overall. He continues to find the current medication regimen relatively effective, and it allows him to function at a higher level. We will continue his medications unchanged. We will follow up with him in a couple of months and proceed accordingly. Other Suni Fierro, am scribing for Dr. Maxwell Newman. Sri, Dr. Maxwell Newman, personally performed the services described in this documentation, as scribed by Suni Khan, and it is both accurate and complete. Next Appt Details Follow Up: 2 Months, Reason: Provider Name:Antoinette Castellanos Gersonsal donald, 02/03/2025 01:20:00 PM, [address] [facility], [place], [address], History and Physical Notes * HPI (History of Present Illness) Category Sub-Category Detail Notes Category Not es Pain Details Pain Location Neck, Mid-back, Left shoulder, Right shoulder, Lower back, Left foot, Right foot Quality Sharp, Stabbing, Ach ing, Dull, Efnk-vui-rymtfld, Burning, Throbbing, Tingling, Numbness Severity of pain at its worst 10/10 Severity of pain at its best 4/10 Severity of average pain 4/10 to 5/10 Severity of pain right now 6/10 Severity of pain on medication 4/10 When did you last take your pain medicine 12/10/24 at 1200, Oxycodone Medication Details Do you have a lock b ox or safe place for medication away from minors and/or others? Yes Do you have any leftover pain medication building up at your house? No Do you understand that pain medication c an be addicting and can cause overdose? Yes Do you feel you can REDUCE the amount of medication you take today? No Opioid Assessment Tools Pill Count 16 tabs, Essentially consistent pill count at today's visit (within 1 to 2 days of expected) Last Urine Drug Screen 10/09/24, shows c onsistent with prescribed medication [place] Prescription Monitoring Program [place] PDMP, found to be consistent with treatment history, reviewed today Treatment History Caregivers you have visited Joseph white physician, Pain medicine physician, Chiropractor, Spine surgeon Test undergone in the past 02/18/2024 [facility] MRI -- X-rays, Nerve conduction study Past medication you have taken Percocet 10 #120 Filled 11/13/24 - NSAIDs; ibuprofen, Aleve, Tylenol, sports creams, Oxycodone Treatments you have had L-SI joint Inj 0 09/12/2023 - MBB's 2022 - 11/2021 Lumbar SCS trial - 05/2021 LESI - Rest, ice, heat, stretching, position changes, pujo-lzp-sppeicf medications, heating pad, Medial branch block, Sacroiliac joint injection, Epidural steroid injection, Radiofrequency denervation, Surgery, TENS, Spinal cord stimulator trial Examination Category Sub-Category Detail Notes Category Not es General Examination Constitutional: Patient appears to be appropriate looking for stated age well nourished. Patient is awake, alert and oriented to person, place and time with recent/ remote memory intact. , in no acute distress. Respiratory: Visual Inspection: breathing equal bilaterally, trachea midline. HEENT: Atraumatic, normocephalic Pupils grossly normal on inspection. Cardiovascular: Cardiac rhythm is regular. Cervical Spine: Cervical Spine is grossly stable, supple and normal curvature noted. Anterior surgical scar well healed. Palpation Cervical Spine: bilateral palpation of cervical paraspinals was painful. Cervical ROM: generalized reduced ROM with pain at end points. Tightness in paraspinal, trapezius and sternocleidomastoid muscles. Spurlings test is positive on the right. Strength/ tone : normal Lumbar Spine: Inspection of the lumbar spine reveals loss of normal lordosis with no obvious scoliosis or asymmetry noted, midline scars well healed Range of Motion: Greatly reduced ROM in all directions. Hyperextension at lumbar spine produced lower back pain. Bilateral facet loading maneuvers (lateral flexion/extension/bending) reproduced lower back pain. Bilateral lateral rotation also causes some pain. Anterior lumbar flexion causes pain. Pain during lumbar extension was observed. Left lateral flexion causes pain. Right lateral flexion causes pain. + Kemps b/l + tightness and spasm of b/l paraspinals. Joints- Hips/ SI Joint: SI Joint Palpation: Mild Left SI tenderness Neurology - Mental Status: Mood and affect are grossly normal. Neurology - Coordination: Antalgic gait. Neurology - Straight Leg Raising: Right: 60 degrees and positive. Left: 90 degrees and negative. Neurology - Motor Strength: Left UE strength - Flexors: 5/5. Right UE strength - Flexors: 4+/5. Left UE strength - Extensors: 5/5. Right UE strength - Extensors: 4+/5. Left UE Tone: Normal. Right UE Tone: Normal. Left LE strength - Flexors: 5/5. Right LE strength - Flexors: 4/5. Left LE strength - Extensors: 5/5. Right LE strength - Extensors: 4/5. Left LE Tone: Normal. Right LE Tone: Normal. Neurology - Sensation: intermittent Right C6 and Right L5 paresthesias, with dysesthesias in b/l stocking distributions Neurology - Deep Tendon Reflexes: Left biceps (DTR): 2. Right biceps (DTR): 2. Left triceps (DTR): 2. Right triceps (DTR): 2. Left brachioradialis (DTR): 2. Right brachioradialis (DTR): 2. Left patellar (DTR): 1. Right patellar (DTR): 1. Left achilles (DTR): 0. Right achilles (DTR): 0. Skin: Scars : Consistent with prior surgeries Inspection: no obvious bruising, rash, ulcerations or discolorations noted Progress Notes * Phan SKINNER DeanDOB: [birth year] (74 yo M)Acc No.[id number]:12/10/2024 Progress Notes Patient: Phan Winters Bob Provider: Donald Newman D.O. 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 UDS. [id number] * HPI: P ain Details: Pain Location N mehdi, Mid-back, Left shoulder, Right shoulder, Lower back, Left foot, Right foot. Quality S harp, Stabbing, Aching, Dull, Nrdc-fqs-janwdte, Burning, Throbbing, Tingling, Numbness. Severity of pain at its worst 1 0/10. Severity of pain at its best 4 /10. Severity of pain on medication 4 /10. Severity of average pain 4 /10 to 5/10. Severity of pain right now 6 /10. When did you last take your pain medicine 0 12/10/24 at 1200, Oxycodone. M edication Details: Do you have a lock box or safe place for medication away from minors and/or others? Y es. Do you have any leftover pain medication building up at your house? N o. Do you understand that pain medication can be addicting and can cause overdose? Y es. Do you feel you can REDUCE the amount of medication you take today? N o. O pioid Assessment Tools: Pill Count 1 6 tabs, Essentially consistent pill count at today's visit (within 1 to 2 days of expected). Last Urine Drug Screen 0 10/09/24, shows consistent with prescribed medication. [place] Pres[place] Monitoring [place], found to be consistent with treatment history, reviewed today. T reatment History: Caregivers you have visited F amily physician, Pain medicine physician, Chiropractor, Spine surgeon. Test undergone in the past 1 04/20/2023 Lumbar MRI -- X -rays, Nerve conduction study. Past medication you have taken P ercocet 10 #120 Filled 11/13/24 - N SAIDs; ibuprofen, Aleve, Tylenol, sports creams, Oxycodone. Treatments you have had L -SI joint I nj 09/12/2023 - M BB's 2022 - 0 11/2021 Lumbar SCS trial - 0 05/2021 LESI - R est, ice, heat, stretching, position changes, zxph-etf-ujtewfd medications, heating pad, Medial branch block, Sacroiliac joint injection, Epidural steroid injection, Radiofrequency denervation, Surgery, TENS, Spinal cord stimulator trial. Neil davila Note: Same old. We are remodeling the house. Patient returns to the clinic today for a follow-up. He presents today in great spirits and reports that he is keeping busy remodeling the house. * ROS: G eneral - Multi System: Constitutional R eports, fatigue. R espiratory D enies any shortness of breath, cough, or hemoptysis. G astrointestinal D enies heartburn, constipation, diarrhea, nausea, blood in stools, or abdominal pain. Psychiatric D enies depression, anxiety, or suicidal thoughts/actions. * Medical History: Hypertension Hyperlipidemia Dysphagia Gastroesophageal reflux disease Hypothyroidism Depression Chronic post-traumatic stress disorder Sciatica Degeneration of lumbar intrevertebral disc Idiopathic peripheral neuropathy Neurocognitive disorder Arthritis Emphysema Anxiety High Cholesterol COVID Vaccinated COVID Medical History Verified * Surgical History: left hip replacement cervical spine fusion cholecystectomy Umbilical hernia repair Myringotomy with tube placement Hip surgery Neck surgery Surgical History verified. * Hospitalization/Major Diagno stic Procedure: see surgical hx Hospitalization Verified. * Family History: F ather: 86 yrs, prostate cancer. M other: 99 yrs, skin cancer, diabetes, blind, hypertension, hyperlipidemia, colon cancer at age 58. M igrated Family History: : Cancer, D iabetes, H eart disease. F amily History Verified.. * Social History: T obacco Use: T obacco Control (Standard) T obacco use: F ormer smoker D rugs/Alcohol: A lcohol Screen (Audit-C) D id you have a drink containing alcohol in the past year? N o P oints 0 I nterpretation N egative Caffeine I ntake: m ore than 4 cups per day Do you drink alcohol?: No. M igrated Social History: M igrated Social History: Alcoholic beverages? - No, A pplying for disability? - No, C urrently on disability? - Yes, D rug or substance abuse? - No, E ducation - Grade School, e xposure to toxins/poisonous substances at work - No, I nvolved in any legal proceedings or lawsuits? - No, M arital Status - , N onprescription drug use? - No, P articipation in detoxification or rehabilitation - No, S moking - No, S moking status (MU) - Unknown if ever smoked, W orking currently? - No. S ocial History Verified. P atient is on disability. * Medications: T akingAlbuterol Sulfate (2.5 MG/3ML) 0.083% Nebulization Solution 3 mL as needed Inhalation every 6 hrs As neededAlbuterol-Budesonide 90-80 MCG/ACT Aerosol 2 puffs as needed Inhalation Six times a day As neededhydroCHLOROthiazide 12.5 MG Capsule 1 capsule in the morning Orally Once a day Levothyroxine Sodium 125 MCG Tablet 1 tablet in the morning on an empty stomach Orally Once a day Lisinopril 20 MG Tablet 1 tablet Orally Once a day Loratadine 10 MG Tablet 2 tablet Orally Once a day Multivitamin Omeprazole 20 MG Tablet Delayed Release 1 capsule 30 minutes before morning meal Orally 2 x daily oxyCODONE-Acetaminophen 10-325 MG Tablet 1 tablet Orally every 6 hrs As needed Not to exceed 4 per day, stop date 12/12/2024, Notes to Pharmacist: Fill on [id number] 40 MG Tablet 1/2 tablet Orally Once a day Tamsulosin HCl 0.4 MG Capsule 1 capsule Orally Once a day Vitamin D3 25 MCG (1000 UT) Capsule 1 capsule Orally Once a day Medication List reviewed and reconciled with the patientTaking Albuterol Sulfate (2.5 MG/3ML) 0.083% Nebulization Solution 3 mL as needed Inhalation every 6 hrs As neededTaking Albuterol-Budesonide 90-80 MCG/ACT Aerosol 2 puffs as needed Inhalation Six times a day As neededTaking hydroCHLOROthiazide 12.5 MG Capsule 1 capsule in the morning Orally Once a day Taking Levothyroxine Sodium 125 MCG Tablet 1 tablet in the morning on an empty stomach Orally Once a day Taking Lisinopril 20 MG Tablet 1 tablet Orally Once a day Taking Loratadine 10 MG Tablet 2 tablet Orally Once a day Taking Multivitamin Taking Omeprazole 20 MG Tablet Delayed Release 1 capsule 30 minutes before morning meal Orally 2 x daily Taking oxyCODONE-Acetaminophen 10- 325 MG Tablet 1 tablet Orally every 6 hrs As needed Not to exceed 4 per day, stop date 12/12/2024, Notes to Pharmacist: Fill on [id number] Simvastatin 40 MG Tablet 1/2 tablet Orally Once a day Taking Tamsulosin HCl 0.4 MG Capsule 1 capsule Orally Once a day Taking Vitamin D3 25 MCG (1000 UT) Capsule 1 capsule Orally Once a day Medication List reviewed and reconciled with the patient * Allergies: S HELLFISH: AllergyShellfish-derived ProductsyesAllergies Verified. Objective: * Vitals: H t: 65 in, Wt:188.27lbs, Wt-k.4 kg, BMI:31.33Index, Ht-cm: 165.1 cm. * Examination: G eneral Examination: C onstitutional: Patient appears to be appropriate looking for stated age well nourished. Patient is awake, alert and oriented to person, place and time with recent/ remote memory intact. , in no acute distress. Respiratory: Visual Inspection: breathing equal bilaterally, trachea midline. HEENT: Atraumatic, normocephalic Pupils grossly normal on inspection. Cardiovascular: Cardiac rhythm is regular. Cervical Spine: Cervical Spine is grossly stable, supple and normal curvature noted. Anterior surgical scar well healed. Palpation Cervical Spine: bilateral palpation of cervical paraspinals was painful. Cervical ROM: generalized reduced ROM with pain at end points. Tightness in paraspinal, trapezius and sternocleidomastoid muscles. Spurlings test is positive on the right. Strength/ tone : normal Lumbar Spine: Inspection of the lumbar spine reveals loss of normal lordosis with no obvious scoliosis or asymmetry noted, midline scars well healed Range of Motion: Greatly reduced ROM in all directions. Hyperextension at lumbar spine produced lower back pain. Bilateral facet loading maneuvers (lateral flexion/extension/bending) reproduced lower back pain. Bilateral lateral rotation also causes some pain. Anterior lumbar flexion causes pain. Pain during lumbar extension was observed. Left lateral flexion causes pain. Right lateral flexion causes pain. + Kemps b/l + tightness and spasm of b/l paraspinals. Joints- Hips/ SI Joint: SI Joint Palpation: Mild Left SI tenderness Neurology - Mental Status: Mood and affect are grossly normal. Neurology - Coordination: Antalgic gait. Neurology - Straight Leg Raising: Right: 60 degrees and positive. Left: 90 degrees and negative. Neurology - Motor Strength: Left UE strength - Flexors: 5/5. Right UE strength - Flexors: 4+/5. Left UE strength - Extensors: 5/5. Right UE strength - Extensors: 4+/5. Left UE Tone: Normal. Right UE Tone: Normal. Left LE strength - Flexors: 5/5. Right LE strength - Flexors: 4/5. Left LE strength - Extensors: 5/5. Right LE strength - Extensors: 4/5. Left LE Tone: Normal. Right LE Tone: Normal. Neurology - Sensation: intermittent Right C6 and Right L5 paresthesias, with dysesthesias in b/l stocking distributions Neurology - Deep Tendon Reflexes: Left biceps (DTR): 2. Right biceps (DTR): 2. Left triceps (DTR): 2. Right triceps (DTR): 2. Left brachioradialis (DTR): 2. Right brachioradialis (DTR): 2. Left patellar (DTR): 1. Right patellar (DTR): 1. Left achilles (DTR): 0. Right achilles (DTR): 0. Skin: Scars : Consistent with prior surgeries Inspection: no obvious bruising, rash, ulcerations or discolorations noted. Assessment: * Assessment: 1. C hronic pain syndrome - G89.4 (Primary) 2 . O ther spondylosis with radiculopathy, lumbosacral region - M47.27 3 . S acroiliitis, not elsewhere classified - M46.1 4 . L elia term (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 of opiate analgesic - Z79.891 & #160; 5 . U nspecified abnormalities of gait and mobility - R26.9 Plan: * Treatment: 2. S acroiliitis, not elsewhere classified Refill oxyCODONE-Acetaminophen Tablet, 10-325 MG, 1 tablet, Orally, every 6 hrs As needed Not to exceed 4 per day, 30 days, 120 Tablet, Start Date: 12/10/2024, Stop Date: 01/12/2025, Refills 0, Notes to Pharmacist: Fill on 12-13-24 or few days early due to weekend fill; R efill oxyCODONE-Acetaminophen Tablet, 10-325 MG, 1 tablet, Orally, every 6 hrs As needed Not to exceed 4 per day, 30 days, 120 Tablet, Start Date: 12/10/2024, Stop Date: 02/11/2025, Refills 0, Notes to Pharmacist: Fill on 01-12-25. 3. O thers Notes: ISuni, am scribing for Dr. Maxwell Newman. I, Dr. Maxwell Newman, personally performed the services described in this documentation, as scribed by Suni Khan, and it is both accurate and complete. * Follow Up: 2 Months Billing Information: * Procedure Codes: Care Plan Details* * Electronic signature of Maxwell Newman DO on 12/14/2024 at 09:45 AM CDT Sign off status: Pending * Provider: Donald Newman D.O. Date: 12/10/2024 Generated for Isma sutton/Espinoza/Aileenitting on: 12/14/2024 09:45 AM CDT
--- OUTSIDE RECORDS SUMMARY | 2024-12-14 09:45 | XMS_ITS | Encounter Summary ---
Author Organization [facility] Address [address] [place] [address] Care Team Providers Care Marketing Strategist Name Role Phone Sreedhar Ramirez MD Primary Care Provider [phone] Encounter Details Date Type Department Care Team (Latest Contact Info) Description 03/20/2000 Outpatient Historical [facility] Sean Stroud MD [address] [place] [address] Brachial neuritis or radiculitis NOS (Primary Dx); Cervical spondylosis; Cervical disc displacmnt; Cervicalgia Social History Tobacco Use Types Packs/Day Years Used Date Smoking Tobacco: Never Assessed Sex and Gender Information Value Date Recorded Sex Assigned at Not on file 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 Gender Identity Not on file Sexual Orientation Not on file documented as of this encounter Plan of Treatment Not on file documented as of this encounter Visit Diagnoses Diagnosis Brachial neuritis or radiculitis NOS- Primary Brachial neuritis or radiculitis nos Cervical spondylosis Cervical spondylosis without myelopathy Cervical disc displacmnt Displacement of cervical intervertebral disc without myelopathy Cervicalgia documented in this encounter Care Teams Marketing Strategist Relationship Specialty Start Date End Date Sreedhar Ramirez MD [address] [facility] [address] [place] [id number] PCP - General Internal Medicine 09/29/15 documented as of this encounter
--- OUTSIDE RECORDS SUMMARY | 2024-12-14 09:45 | XMS_ITS | Encounter Summary ---
Author Organization [facility] Address [address] [place] [address] Care Team Providers Care Emergency Nurse Name Role Phone Sreedhar Ramirez MD Primary Care Provider [phone] Encounter Details Date Type Department Care Team (Latest Contact Info) Description 05/30/2000 Outpatient Historical [facility] [address] [place] [id number] Bob Gilbert MD NO ADDRESS ON FILE Benign kari skin trunk (Primary Dx); Other symptoms involving skin and integumentary tissues; Other specified disease of hair and hair follicles Social History Tobacco Use Types Packs/Day Years Used Date Smoking Tobacco: Never Assessed Sex and Gender Information Value Date Recorded Sex Assigned at Not on file 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 Gender Identity Not on file Sexual Orientation Not on file documented as of this encounter Plan of Treatment Not on file documented as of this encounter Visit Diagnoses Diagnosis Benign kari skin trunk- Primary Benign neoplasm of skin of trunk, except scrotum Other symptoms involving skin and integumentary tissues Other specified disease of hair and hair follicles documented in this encounter Care Teams Emergency Nurse Relationship Specialty Start Date End Date Sreedhar Ramirez MD [address] [place] [address] PCP - General Internal Medicine 09/29/15 documented as of this encounter
--- OUTSIDE RECORDS SUMMARY | 2024-12-14 09:45 | XMS_ITS | Encounter Summary ---
Author Organization 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
--- OUTSIDE RECORDS SUMMARY | 2024-12-14 09:45 | XMS_ITS | Clinical Summary ---
Author Organization [facility] Address [address] [place] [address] Phone Care Team Providers Care Balance Wheel Motion Inspector Name Role Phone Unavailable Primary Care Provider Unavailabl e Allergies Active Allergy Reactions Criticality Noted Date Comments Gabapentin Other (See Comments) 12/09/2013 Quinine Rash Low 08/26/2003 Shellfish Containing Products Hives High 2003 Medications triazolam (HALCION) 0.25 MG tablet SMARTSI Tablet(s) By Mouth 11/23/2024 Active simvastatin (ZOCOR) 20 MG tablet Take one tablet (20 mg total) by mouth. Active oxyCODONE-acetam inophen (PERCOCET) 10-325 mg tablet Take one tablet by mouth every 6 (six) hours as needed. Active lisinopriL-hydro chlorothiazide (PRINZIDE) 10-12.5 mg tablet Take one tablet by mouth one (1) time a day. Active levothyroxine (SYNTHROID) 125 MCG tablet Take one tablet (125 mcg total) by mouth. Active fluticasone propionate (FLONASE) 50 mcg/actuation nasal spray two sprays by Nasal route. Active chlorhexidine (PERIDEX) 0.12 % oral rinse SMARTSIG:Tw ice Daily 11/23/2024 Active budesonide-formo teroL (SYMBICORT) 80-4.5 mcg/actuation inhaler Inhale two puffs into the lungs. Active Active Problems No known active problems Encounters Date Type Department Care Team Description 11/30/2024 3:10 PM CDT Ancillary Procedure [facility] [address] [place] [address] Hematoma; Trauma 11/30/2024 2:40 PM CDT [facility] [place] [address] [place] [address] Kimberly Griffin, ELICIA Hematoma (Primary Dx); Trauma 11/30/2024 Travel from Last 3 Months Social History Tobacco Use Types Packs/Day Years Used Date Smoking Tobacco: Never Assessed Sex and Gender Information Value Date Recorded Sex Assigned at Not on file Legal Sex Male 1:41 PM CDT Gender Identity Not on file Sexual Orientation Not on file Last Filed Vital Signs Vital Sign Reading Time Taken Comments Blood Pressure 112/74 11/30/2024 2:52 PM CDT Pulse 64 11/30/2024 2:52 PM CDT Temperature 36.3 C (97.3 F) 11/30/2024 2:52 PM CDT Respiratory Rate 18 11/30/2024 2:52 PM CDT Oxygen Saturation 96% 11/30/2024 2:52 PM CDT Inhaled Oxygen Concentration - - Weight 83.5 kg (184 lb) 11/30/2024 2:52 PM CDT Height 165.1 cm (5' 5 ) 11/30/2024 2:52 PM CDT Body Mass Index 30.62 11/30/2024 2:52 PM CDT Plan of Treatment Health Maintenance Due Date Last Done Comments Annual Depression Screening 1961 Hepatitis C Antibody Screen 1966 RSV Immunization Pa tients or 60+ Years (1 - 1-dose 75+ series) 2023 COVID-19 Vaccine (2023-2 5 season) 2024 10/11/2021, 02/15/2021, 05/17/2020, Additional history exists Flu Vaccine (#1) 11/16/2024 01/17/2022, , 12/10/2019, Additional history exists Influenza Vaccine 11/16/2024 01/17/2022, , 12/10/2019, Additional history exists Pneumococcal Vaccine Age 50+ Completed 10/2017, 12/02/2015, 11/03/2015, Additional history exists Procedures Procedure Name Priority Date/Time Associated Diagnosis Comments XR FEMUR LEFT AP AND LATERAL Routine 11/30/2024 3:41 PM CDT Hematoma Trauma from Last 3 Months Results * X-Ray Femur Left AP and Lateral (11/30/2024 3:41 PM CDT) Anatomical Region Laterality Modality Hip, Thigh, Knee X-ray 11/30/2024 3:57 PM CDT Narrative 11/30/2024 3:59 PM CDT XR FEMUR LEFT AP AND LATERAL INDICATION / CLINICAL INFORMATION: Hematoma, Trauma COMPARISON: None available. FINDINGS: BONES / JOINT(S): No acute fracture or subluxation. Post surgical changes from left hip arthroplasty without acute abnormality. SOFT TISSUES: No significant abnormality. ADDITIONAL FINDINGS: None. Procedure Note Alejandro Torres MD - 11/30/2024 XR FEMUR LEFT AP AND LATERAL INDICATION / CLINICAL INFORMATION: Hematoma, Trauma COMPARISON: None available. FINDINGS: BONES / JOINT(S): No acute fracture or subluxation. Post surgical changes from left hip arthroplasty without acute abnormality. SOFT TISSUES: No significant abnormality. ADDITIONAL FINDINGS: None. Kimberly Griffin NP XR IMG ORDERABLES Final Result from Last 3 Months Insurance [facility] [employer]
--- OUTSIDE RECORDS SUMMARY | 2024-12-14 09:45 | XMS_ITS | Encounter Summary ---
Author Organization [facility] Address [address] [place] [address] Care Team Providers Care Civil Celebrant Name Role Phone Sreedhar Ramirez MD Primary Care Provider [phone] Encounter Details Date Type Department Care Team (Late st Contact Info) Description 05/09/1998 Outpatient Historical [facility] [place] [address] [place] [phone] Bruce Keene MD [address] [place] [address] Lumbago (Primary Dx); Unspecified essential hypertension; Unspecified disorder of male genital organs Social History Tobacco Use Types Packs/Day Years Used Date Smoking Tobacco: Never Assessed Sex and Gender Information Value Date Recorded Sex Assigned at Not on file 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
--- OUTSIDE RECORDS SUMMARY | 2024-12-14 09:45 | XMS_ITS | Encounter Summary ---
Author Organization [facility] Address [address] [place] [address] Care Team Providers Care Customer Operations Representative Name Role Phone Sreedhar Ramirez MD Primary Care Provider [phone] Encounter Details Date Type Department Care Team (Latest Contact Info) Description 05/19/1999 Outpatient Historical [facility] Jomar Holt [address] [place] [address] Other diseases of vocal cords (Primary Dx) Social History Tobacco Use Types Packs/Day Years Used Date Smoking Tobacco: Never Assessed Sex and Gender Information Value Date Recorded Sex Assigned at Not on file 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
--- OUTSIDE RECORDS SUMMARY | 2024-12-14 09:45 | XMS_ITS | Encounter Summary ---
Author Organization [facility] Address [address] [place] [address] Care Team Providers Care Vest Maker Name Role Phone Sreedhar Ramirez MD Primary Care Provider [phone] Encounter Details Date Type Department Care Team (Late st Contact Info) Description 11/02/1997 Outpatient [facility] [place] [address] [place] [phone] Bruce Keene MD [address] [place] [address] Unspecified essential hypertension (Primary Dx); Solvent dermatitis; Lumbago Social History Tobacco Use Types Packs/Day Years Used Date Smoking Tobacco: Never Assessed Sex and Gender Information Value Date Recorded Sex Assigned at Not on file 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
--- OUTSIDE RECORDS SUMMARY | 2024-12-14 09:45 | XMS_ITS | Encounter Summary ---
Author Organization [facility] Address [address] [place] [address] Care Team Providers Care Communications Tower Climber Name Role Phone Sreedhar Ramirez MD Primary Care Provider [phone] Encounter Details Date Type Department Care Team (Latest Contact Info) Description 02/21/2000 Outpatient Historical [facility] Sean Stroud MD [address] [place] [address] Cervical spondylosis (Primary Dx); Cervical disc displacmnt; Cervicalgia Social History Tobacco Use Types Packs/Day Years Used Date Smoking Tobacco: Never Assessed Sex and Gender Information Value Date Recorded Sex Assigned at Not on file 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 Gender Identity Not on file Sexual Orientation Not on file documented as of this encounter Plan of Treatment Not on file documented as of this encounter Visit Diagnoses Diagnosis Cervical spondylosis- Primary Cervical spondylosis without myelopathy 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
--- OUTSIDE RECORDS SUMMARY | 2024-12-14 09:45 | XMS_ITS | Patient Health Record ---
Author Organization [facility] Address [address] [place] [address] Care Team Providers Care Flooring Helper Name Role Phone LUCILA GALLEGOS [facility] Primary Care Provider Unavailab Maxwell Rudd Unavailable [phone] [place], [place] Unavailable Unavailable Migration, Provider Unavailable Unavailable Jessica Leana Unavailable [phone] Carey Sarabia Unavailable Antoinette Wetzel Unavailable [phone] Allergies Allergen (clinical drug ingredient) Drug/Non Drug Allergy documented on EMR Reaction Allergy Type Onset Date Status Shellfish (FN) SHELLFISH (uncoded) Unknown Allergy Active Shellfish (FN) Shellfish-derived Products Unknown Drug Allergy Active Results Component Value Reference Range Flag Notes zzzUrine Drug Screen (confir mation by instrument) - [id number] Reviewed date:02/19/2024 03:12:23 PM Interpretation: Performing Lab: Notes/Report: MRI Lumbar Spine w/o Cont-[id number] Reviewed date:06/15/2024 02:17:32 PM Interpretation: Performing Lab: Notes/Report: See Below For Report MRI Lumbar Spine w/o Cont Read See Below For Report Urine Confirmation Panel (in strument) - [id number] Reviewed date:10/14/2024 04:35:57 PM Interpretation: Performing Lab: Notes/Report: 6-Acetylmorphine 0 <6 ng/mL N This aida t was developed and its performance characteristics determined by [facility]. It has not been cleared or approved by the U.S. Food and Drug Administration. 7-Aminoclonazepam 0 <60 ng/mL N This te st was developed and its performance characteristics determined by [facility]. It has not been cleared or approved by the U.S. Food and Drug Administration. Alprazolam 0 <60 ng/mL N This test was developed and its performance characteristics determined by [facility]. It has not been cleared or approved by the U.S. Food and Drug Administration. Amphetamine 0 <75 ng/mL N This test was developed and its performance characteristics determined by [facility]. It has not been cleared or approved by the U.S. Food and Drug Administration. aOH-Alprazolam 0 <60 ng/mL N This test was developed and its performance characteristics determined by [facility]. It has not been cleared or approved by the U.S. Food and Drug Administration. Buprenorphine 0.0 <7.5 ng/mL N This test w as developed and its performance characteristics determined by [facility]. It has not been cleared or approved by the U.S. Food and Drug Administration. Norbuprenorphine 0.0 <37.5 ng/mL N This te st was developed and its performance characteristics determined by [facility]. It has not been cleared or approved by the U.S. Food and Drug Administration. Carisoprodol 0 <75 ng/mL N This test wa s developed and its performance characteristics determined by [facility]. It has not been cleared or approved by the U.S. Food and Drug Administration. Codeine 0 <75 ng/mL N This test was developed and its performance characteristics determined by [facility]. It has not been cleared or approved by the U.S. Food and Drug Administration. EDDP 0 <75 ng/mL N This test was developed and its performance characteristics determined by [facility]. It has not been cleared or approved by the U.S. Food and Drug Administration. Fentanyl 0 <6 ng/mL N This test was developed and its performance characteristics determined by [facility]. It has not been cleared or approved by the U.S. Food and Drug Administration. Hydrocodone 0 <75 ng/mL N This test was developed and its performance characteristics determined by [facility]. It has not been cleared or approved by the U.S. Food and Drug Administration. Hydromorphone 0 <75 ng/mL N This test w as developed and its performance characteristics determined by [facility]. It has not been cleared or approved by the U.S. Food and Drug Administration. Lorazepam 0 <60 ng/mL N This test was developed and its performance characteristics determined by [facility]. It has not been cleared or approved by the U.S. Food and Drug Administration. MDMA 0 <75 ng/mL N This test was developed and its performance characteristics determined by [facility]. It has not been cleared or approved by the U.S. Food and Drug Administration. Meperidine 0.0 <37.5 ng/mL N This test was developed and its performance characteristics determined by [facility]. It has not been cleared or approved by the U.S. Food and Drug Administration. Meprobamate 0 <75 ng/mL N This test was developed and its performance characteristics determined by [facility]. It has not been cleared or approved by the U.S. Food and Drug Administration. Methamphetamine 56 <75 ng/mL N This test was developed and its performance characteristics determined by [facility]. It has not been cleared or approved by the U.S. Food and Drug Administration. Methadone 0 <75 ng/mL N This test was developed and its performance characteristics determined by [facility]. It has not been cleared or approved by the U.S. Food and Drug Administration. Morphine 0 <75 ng/mL N This test was developed and its performance characteristics determined by [facility]. It has not been cleared or approved by the U.S. Food and Drug Administration. Nordiazepam 0 <60 ng/mL N This test was developed and its performance characteristics determined by [facility]. It has not been cleared or approved by the U.S. Food and Drug Administration. Norfentanyl 0 <6 ng/mL N This test was developed and its performance characteristics determined by [facility]. It has not been cleared or approved by the U.S. Food and Drug Administration. Normeperidine 0.0 <37.5 ng/mL N This test was developed and its performance characteristics determined by [facility]. It has not been cleared or approved by the U.S. Food and Drug Administration. O-desmethyltramadol 0 <75 ng/mL N This test was developed and its performance characteristics determined by [facility]. It has not been cleared or approved by the U.S. Food and Drug Administration. Oxazepam 0 <60 ng/mL N This test was developed and its performance characteristics determined by [facility]. It has not been cleared or approved by the U.S. Food and Drug Administration. Oxycodone 334.0 <37.5 ng/mL H This test was developed and its performance characteristics determined by [facility]. It has not been cleared or approved by the U.S. Food and Drug Administration. Oxymorphone 756 <75 ng/mL H This test was developed and its performance characteristics determined by [facility]. It has not been cleared or approved by the U.S. Food and Drug Administration. Phencyclidine 0.0 <7.5 ng/mL N This test w as developed and its performance characteristics determined by [facility]. It has not been cleared or approved by the U.S. Food and Drug Administration. Tapentadol 0.0 <37.5 ng/mL N This test was developed and its performance characteristics determined by [facility]. It has not been cleared or approved by the U.S. Food and Drug Administration. Temazepam 0 <60 ng/mL N This test was developed and its performance characteristics determined by [facility]. It has not been cleared or approved by the U.S. Food and Drug Administration. Tramadol 60 <75 ng/mL N This test was developed and its performance characteristics determined by [facility]. It has not been cleared or approved by the U.S. Food and Drug Administration. Norhydrocodone 0 <75 ng/mL N This test was developed and its performance characteristics determined by [facility]. It has not been cleared or approved by the U.S. Food and Drug Administration. Noroxycodone >2500 <38 ng/mL > This test wa s developed and its performance characteristics determined by [facility]. It has not been cleared or approved by the U.S. Food and Drug Administration. Pregabalin 0 <225 ng/mL N This test was developed and its performance characteristics determined by [facility]. It has not been cleared or approved by the U.S. Food and Drug Administration. Gabapentin 0 <225 ng/mL N This test was developed and its performance characteristics determined by [facility]. It has not been cleared or approved by the U.S. Food and Drug Administration. Benzoylecgonine 0.0 <37.5 ng/mL N This aida t was developed and its performance characteristics determined by [facility]. It has not been cleared or approved by the U.S. Food and Drug Administration. 4-Hydroxy Xylazine 0 <25 ng/mL N This t est was developed and its performance characteristics determined by [facility]. It has not been cleared or approved by the U.S. Food and Drug Administration. Schedule Confirmation Reviewed date:06/15/2024 02:31:25 PM Interpretation: Performing Lab: Notes/Report: MRI Lumbar Spine w/o Cont Tox Results Reviewed date:06/05/2024 02:30:16 PM Interpretation: Performing Lab: Notes/Report: Tox Results Reviewed date:10/14/2024 04:35:57 PM Interpretation: Performing Lab: Notes/Report: MRI Lumbar Spine w/o Cont-[id number] Reviewed date:06/15/2024 02:25:15 PM Interpretation: Performing Lab: Notes/Report: [id number] Urine Drug Screen (cup read) - [id number] Reviewed date:10/09/2024 01:34:14 PM Interpretation: Performing Lab: Notes/Report: OXY + Schedule Confirmation Reviewed date:06/15/2024 02:31:30 PM Interpretation: Performing Lab: Notes/Report: MRI Lumbar Spine w/o Cont Urine Drug Screen (cup read) - [id number] Reviewed date:06/01/2024 01:29:27 PM Interpretation: Performing Lab: Notes/Report: OXY + Urine Confirmation Panel (in strument) - [id number] Reviewed date:06/04/2024 02:00:52 PM Interpretation: Performing Lab: Notes/Report: 6-Acetylmorphine 0 <6 ng/mL N This aida t was developed and its performance characteristics determined by [facility]. It has not been cleared or approved by the U.S. Food and Drug Administration. 7-Aminoclonazepam 0 <60 ng/mL N This te st was developed and its performance characteristics determined by [facility]. It has not been cleared or approved by the U.S. Food and Drug Administration. Alprazolam 0 <60 ng/mL N This test was developed and its performance characteristics determined by [facility]. It has not been cleared or approved by the U.S. Food and Drug Administration. Amphetamine 0 <75 ng/mL N This test was developed and its performance characteristics determined by [facility]. It has not been cleared or approved by the U.S. Food and Drug Administration. aOH-Alprazolam 0 <60 ng/mL N This test was developed and its performance characteristics determined by [facility]. It has not been cleared or approved by the U.S. Food and Drug Administration. Buprenorphine 0.0 <7.5 ng/mL N This test w as developed and its performance characteristics determined by [facility]. It has not been cleared or approved by the U.S. Food and Drug Administration. Norbuprenorphine 0.0 <37.5 ng/mL N This te st was developed and its performance characteristics determined by [facility]. It has not been cleared or approved by the U.S. Food and Drug Administration. Carisoprodol 0 <75 ng/mL N This test wa s developed and its performance characteristics determined by [facility]. It has not been cleared or approved by the U.S. Food and Drug Administration. Codeine 0 <75 ng/mL N This test was developed and its performance characteristics determined by [facility]. It has not been cleared or approved by the U.S. Food and Drug Administration. EDDP 0 <75 ng/mL N This test was developed and its performance characteristics determined by [facility]. It has not been cleared or approved by the U.S. Food and Drug Administration. Fentanyl 0 <6 ng/mL N This test was developed and its performance characteristics determined by [facility]. It has not been cleared or approved by the U.S. Food and Drug Administration. Hydrocodone 0 <75 ng/mL N This test was developed and its performance characteristics determined by [facility]. It has not been cleared or approved by the U.S. Food and Drug Administration. Hydromorphone 0 <75 ng/mL N This test w as developed and its performance characteristics determined by [facility]. It has not been cleared or approved by the U.S. Food and Drug Administration. Lorazepam 0 <60 ng/mL N This test was developed and its performance characteristics determined by [facility]. It has not been cleared or approved by the U.S. Food and Drug Administration. MDMA 0 <75 ng/mL N This test was developed and its performance characteristics determined by [facility]. It has not been cleared or approved by the U.S. Food and Drug Administration. Meperidine 0.0 <37.5 ng/mL N This test was developed and its performance characteristics determined by [facility]. It has not been cleared or approved by the U.S. Food and Drug Administration. Meprobamate 0 <75 ng/mL N This test was developed and its performance characteristics determined by [facility]. It has not been cleared or approved by the U.S. Food and Drug Administration. Methamphetamine 2 <75 ng/mL N This test was developed and its performance characteristics determined by [facility]. It has not been cleared or approved by the U.S. Food and Drug Administration. Methadone 0 <75 ng/mL N This test was developed and its performance characteristics determined by [facility]. It has not been cleared or approved by the U.S. Food and Drug Administration. Morphine 0 <75 ng/mL N This test was developed and its performance characteristics determined by [facility]. It has not been cleared or approved by the U.S. Food and Drug Administration. Nordiazepam 0 <60 ng/mL N This test was developed and its performance characteristics determined by [facility]. It has not been cleared or approved by the U.S. Food and Drug Administration. Norfentanyl 0 <6 ng/mL N This test was developed and its performance characteristics determined by [facility]. It has not been cleared or approved by the U.S. Food and Drug Administration. Normeperidine 0.0 <37.5 ng/mL N This test was developed and its performance characteristics determined by [facility]. It has not been cleared or approved by the U.S. Food and Drug Administration. O-desmethyltramadol 0 <75 ng/mL N This test was developed and its performance characteristics determined by [facility]. It has not been cleared or approved by the U.S. Food and Drug Administration. Oxazepam 0 <60 ng/mL N This test was developed and its performance characteristics determined by [facility]. It has not been cleared or approved by the U.S. Food and Drug Administration. Oxycodone 561.4 <37.5 ng/mL H This test was developed and its performance characteristics determined by [facility]. It has not been cleared or approved by the U.S. Food and Drug Administration. Oxymorphone 582 <75 ng/mL H This test was developed and its performance characteristics determined by [facility]. It has not been cleared or approved by the U.S. Food and Drug Administration. Phencyclidine 0.0 <7.5 ng/mL N This test w as developed and its performance characteristics determined by [facility]. It has not been cleared or approved by the U.S. Food and Drug Administration. Tapentadol 1.3 <37.5 ng/mL N This test was developed and its performance characteristics determined by [facility]. It has not been cleared or approved by the U.S. Food and Drug Administration. Temazepam 0 <60 ng/mL N This test was developed and its performance characteristics determined by [facility]. It has not been cleared or approved by the U.S. Food and Drug Administration. Tramadol 12 <75 ng/mL N This test was developed and its performance characteristics determined by [facility]. It has not been cleared or approved by the U.S. Food and Drug Administration. Norhydrocodone 4 <75 ng/mL N This test was developed and its performance characteristics determined by [facility]. It has not been cleared or approved by the U.S. Food and Drug Administration. Noroxycodone 906 <38 ng/mL H This test wa s developed and its performance characteristics determined by [facility]. It has not been cleared or approved by the U.S. Food and Drug Administration. Pregabalin 0 <225 ng/mL N This test was developed and its performance characteristics determined by [facility]. It has not been cleared or approved by the U.S. Food and Drug Administration. Gabapentin 0 <225 ng/mL N This test was developed and its performance characteristics determined by [facility]. It has not been cleared or approved by the U.S. Food and Drug Administration. Benzoylecgonine 0.0 <37.5 ng/mL N This aida t was developed and its performance characteristics determined by [facility]. It has not been cleared or approved by the U.S. Food and Drug Administration. 4-Hydroxy Xylazine 0 <25 ng/mL N This t est was developed and its performance characteristics determined by [facility]. It has not been cleared or approved by the U.S. Food and Drug Administration. Urine Drug Screen (cup read) - [id number] Reviewed date:07/29/2024 01:36:03 PM Interpretation: Performing Lab: Notes/Report: OXY + Reason For Referral No Information Medications Medication SIG (Take, Route, Frequency, Duration) Notes Start Date End Date Status Tamsulosin HCl 0.4 MG Capsule 1 capsule Orally Once a day; Duration: 90 Active oxyCODONE-Acetaminophen 10-325 MG Tablet 1 tablet Orally every 6 hrs; Duration: 30 days As needed Not to exceed 4 per day Fill on 01-12-25 12/10/2024 02/11/2025 Active Albuterol Sulfate (2.5 MG/3ML) 0.083% Nebulization Solution 3 mL as needed Inhalation every 6 hrs As needed Active Vitamin D3 25 MCG (1000 UT) Capsule 1 capsule Orally Once a day Active Albuterol-Budesonide 90-80 MCG/ACT Aerosol 2 puffs as needed Inhalation Six times a day As needed Active hydroCHLOROthiazide 12.5 MG Capsule 1 capsule in the morning Orally Once a day Active Levothyroxine Sodium 125 MCG Tablet 1 tablet in the morning on an empty stomach Orally Once a day Active Lisinopril 20 MG Tablet 1 tablet Orally Once a day Active Loratadine 10 MG Tablet 2 tablet Orally Once a day Active Multivitamin Active [...] due to weekend fill 12/10/2024 01/12/2025 Active Social History Tobacco Use: Social History [...] No Section Notes: Patient is on disability Problems Problem Type SNOMED Code ICD Code Onset Dates Problem Status W/U Status Risk Notes Problem Mixed hyperlipidemia (073200768) Mixed hyperlipidemia (E78.2) Active confirmed Problem Solitary sacroiliitis (490130388) Sacroiliitis, not elsewhere classified (M46.1) Active confirmed Problem Lumbosacral spondylosis without myelopathy (94000294) Other spondylosis with radiculopathy, lumbosacral region (M47.27) Active confirmed Problem Lumbosacral spondylosis without myelopathy (04083813) Other spondylosis, lumbosacral region (M47.897) Active confirmed Problem Shortness of breath (430331846) Shortness of breath (R06.02) Active confirmed Problem Abnormal gait (07810502) Unspecified abnormalities of gait and mobility (R26.9) Active confirmed Problem Dysphagia (02995518) Dysphagia (R13.10) Active confirmed Problem Gastroesophageal reflux disease (847614059) Gastroesophageal reflux disease, unspecified whether esophagitis present (K21.9) Active confirmed Problem Primary hypertension (62454826) Primary hypertension (I10) Active confirmed Problem Degeneration of lumbar intervertebral disc (90813942) Degenerative disc disease, lumbar (M51.36) Active confirmed Problem Lumbar spondylosis (152595931) Lumbar spondylosis (M47.816) Active confirmed Problem 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 (442398399) 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) Active confirmed Problem Chronic pain syndrome (952686739) Chronic pain syndrome (G89.4) Active confirmed Problem Dysphagia (64824552) Dysphagia, unspecified (R13.10) Active confirmed Problem 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 Problem Diverticular disease of colon (533770618) Diverticulosis of large intestine without perforation or abscess without bleeding (K57.30) Active confirmed Problem Diverticulosis of small intestine (1946662) Diverticulosis of small intestine without perforation or abscess without bleeding (K57.10) Active confirmed Vital Signs Heart Rate 65 /min 12/23/2023 Blood pressure diastolic 84 mm Hg 12/23/2023 Oximetry 97 % 12/23/2023 Height-cm 165.1 cm 12/10/2024 Weight-kg 85.4 kg 12/10/2024 Height 65 in 12/10/2024 Blood pressure systolic 132 mm Hg 12/23/2023 Weight 188.27 lbs 12/10/2024 BMI 31.33 kg/m2 12/10/2024 Encounters Encounter Location Date Provider Diagnosis [facility] [address] [place] [address] 12/10/2024 Maxwell Newman Chronic pain syndrom e G89.4 ; Other spondylosis with radiculopathy, lumbosacral region M47.27 ; Sacroiliitis, not elsewhere classified M46.1 ; 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 Z79.891 and Unspecified abnormalities of gait and mobility R26.9 [facility] [address] [place] [address], [place] [address] 12/23/2023 Leana Lopez Shortness of breath R06.02 ; Primary hypertension I10 and Mixed hyperlipidemia E78.2 [facility] [address] [place] [address] 02/17/2024 Maxwell Newman Chronic pain syndrom e G89.4 ; Other spondylosis with radiculopathy, lumbosacral region M47.27 ; Sacroiliitis, not elsewhere classified M46.1 ; Unspecified abnormalities of gait and mobility R26.9 and 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 Z79.891 [facility] [address] [place] [address] 04/13/2024 Maxwell Newman Chronic pain syndrom e G89.4 ; Other spondylosis with radiculopathy, lumbosacral region M47.27 ; Sacroiliitis, not elsewhere classified M46.1 ; Unspecified abnormalities of gait and mobility R26.9 and senior living (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 of opiate analgesic Z79.891 [facility] [address] [place] [address] 06/01/2024 Maxwell Newman Chronic pain syndrom e G89.4 ; Other spondylosis with radiculopathy, lumbosacral region M47.27 ; Sacroiliitis, not elsewhere classified M46.1 ; Unspecified abnormalities of gait and mobility R26.9 and 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 Z79.891 [facility] [address] [place] [address] 07/29/2024 Antoinette Wetzel Chronic pain syndrom e G89.4 ; Other spondylosis with radiculopathy, lumbosacral region M47.27 ; Sacroiliitis, not elsewhere classified M46.1 and 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 Z79.891 [facility] [address] [place] [address] 10/09/2024 Antoinette Wetzel Chronic pain syndrom e G89.4 ; Other spondylosis with radiculopathy, lumbosacral region M47.27 ; Sacroiliitis, not elsewhere classified M46.1 and 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 Z79.891 Migrated_Facility 0 0 01/11/2024 Provider Migration Migrated_Facility 0 0 01/12/2024 Provider Migration [facility] [address] [facility] [address] 02/21/2024 Maxwell Newman Other spondylosis with radiculopathy, lumbosacral region M47.27 [facility] [address] [facility] [place] [address] 03/20/2024 Carey BasilioDomi e Chronic pain syndrome G89.4 [facility] [address] [place] [address] 06/18/2024 Maxwell Newman [facility] [address] [place] [address] 06/18/2024 Maxwell Newman Sacroiliitis, not elsewhere classified M46.1 [facility] [address] [place] [address] 06/18/2024 Maxwell Newman Sacroiliitis, not elsewhere classified M46.1 [facility] [address] [place] [address] 07/29/2024 Maxwell Newman Sacroiliitis, not elsewhere classified M46.1 [facility] [address] [place] [place] [address] 10/09/2024 Maxwell Newman Sacroiliitis, not elsewhere classified M46.1 Assessments Encounter Date Diagnosis (ICD Code) Assessment Notes Treatment Notes Treatment Clinical Notes Section Notes 12/23/2023 Shortness of breath (ICD-10 - R06.02) Patient states that his breathing really seems to be at his normal baseline. He has additional follow-up with pulmonology. Potential for false negative stress test was reviewed. He denies any chest discomfort or additional symptoms today. Patient verbalizes understanding. Additional follow-up was offered. He states that he feels comfortable following up on an as-needed basis. Patient and family verbalized understanding and deny any additional questions or concerns at this time. 02/17/2024 Chronic pain syndrome (ICD-10 - G89.4) I had a nice visit with the patient today regarding his chronic pain issues. Unfortunately, his pain seems to be worsening in the lumbar spine. Looking back, it's been a few years since his last imaging and taking everything into account, it would seem reasonable to get that ordered and we can review that at his next visit in 6-8 weeks. We will continue his medications unchanged for now. Order lumbar MRI 02/17/2024 Other spondylosis with radiculopathy, lumbosacral region (ICD-10 - M47.27) 02/21/2024 Other spondylosis with radiculopathy, lumbosacral region (ICD-10 - M47.27) 04/13/2024 Chronic pain syndrome (ICD-10 - G89.4) I had a nice visit with the patient today regarding his chronic pain issues. We reviewed his new lumbar MRI which shows moderate foraminal stenosis at a couple of different levels and facet disease but no significant changes. We have tried a number of interventions with him and not had any notable success. At this point we will continue his medications and get him [facility] From the sounds of things, they will take over his pain medications at that point. 06/01/2024 Chronic pain syndrome (ICD-10 - G89.4) I had a nice visit with the patient today regarding his chronic pain issues. Overall, he seems to be doing well. It sounds like we don't have any issues [facility] as far [facility] the [facility] and at this point they are working for him. We will continue these unchanged for now and see him back in a couple of months. His pill counts and drug screens have been consistent and he is limited on treatment options with everything we've failed, so it seems more than reasonable at this point. 06/18/2024 Sacroiliitis, not elsewhere classified (ICD-10 - M46.1) 07/29/2024 Chronic pain syndrome (ICD-10 - G89.4) I had a nice discussion with the patient today regarding his chronic pain complaints. He is doing reasonably well on his current medication regimen. He feels with the help of his medication he is able to function better overall feels his lower back pain is relatively stable right now. He denies any other changes since we last seen him or any untoward side effects of the medication. He will continue his medication at present level and return to clinic in 2 months to monitor for treatment effectiveness and compliance. URINE TESTING TODAY; POINT OF SERVICE Urine drug screening will be performed today to monitor compliance with opioid therapy or to serve as a baseline screen for a patient who may be a candidate for opioid therapy in the future, pending UDS results. We will monitor with in-office testing (rapid testing) today and review the results prior to dispensing prescription, as well. Patient has been made aware of this policy. Continue oxyCODONE-Kwesi taminophen Tablet, 10-325 MG, Orally, 120 Tablet, 1 tablet, every 6 hrs, 30 days, Refills=0 Continue oxyCODONE-Kwesi taminophen Tablet, 10-325 MG, Orally, 120 Tablet, 1 tablet, every 6 hrs, 30 days, Refills=0 07/29/2024 Other spondylosis with radiculopathy, lumbosacral region (ICD-10 - M47.27) 07/29/2024 Sacroiliitis, not elsewhere classified (ICD-10 - M46.1) 10/09/2024 Chronic pain syndrome (ICD-10 - G89.4) I had a nice discussion with the patient today regarding his chronic pain complaints. He states he is been doing reasonably well overall lately pain flynn. He defers any sort of interventional procedures. He states he is doing well on his current medication regimen and feels with the help of his medication he is able to function better overall. I did discuss lifestyle modifications as well as a bowel regimen. He denies any changes in his health since we last seen him or any untoward side effects of medication. He will continue his medication at present level and return to clinic in 2 months to monitor for treatment effectiveness and compliance. The patient continues with chronic pain requiring treatment to help restore function and improve quality of life. Risks of opioid therapy as well as interaction of opioids with alcohol, illicit drugs, muscle relaxers, and other sedative medications are reviewed briefly with patient again today. The patient has trialed all other reasonable treatment options and uses the medication to alleviate pain in order to remain active and rest with less pain. No clinically relevant medication side effects are noted. Last UDS and [place] CONSTRUCTION EQUIPMENT OPERATOR reviewed today. Patient is advised that best long-term goals include increased activity, core strengthening, proper weight management, coping strategies, avoidance of painful triggers, and targeted interventional therapy. We will see the patient for routine follow up in accordance with all clinic policies. We did remind patient today of current guidelines to decrease opioid when possible. We will continue to stress nonopioid treatment. RECOMMEND URINE TESTING TODAY Urine drug screening will be performed today to monitor compliance with opioid therapy or to serve as a baseline screen for a patient who may be a candidate for opioid therapy in the future, pending UDS results. We will monitor with in-office testing (rapid testing) today and review the results prior to dispensing prescription. All positive results will be sent for quantitative analysis to ensure accuracy and quantify amounts. Any expected positive results that return negative will also be sent for quantitative analysis. Any questionable read or any medication we cannot test for in the office confidently will be sent for quantitative analysis, as well. Patient has been made aware of this policy and agrees to abide by our urine testing policy. 03/20/2024 Chronic pain syndrome (ICD-10 - G89.4) 06/18/2024 Sacroiliitis, not elsewhere classified (ICD-10 - M46.1) 10/09/2024 Other spondylosis with radiculopathy, lumbosacral region (ICD-10 - M47.27) 10/09/2024 Sacroiliitis, not elsewhere classified (ICD-10 - M46.1) 12/10/2024 Chronic pain syndrome (ICD-10 - G89.4) [...] with radiculopathy, lumbosacral region (ICD-10 - M47.27) 10/09/2024 Sacroiliitis, not elsewhere classified (ICD-10 - M46.1) 07/29/2024 Sacroiliitis, not elsewhere classified (ICD-10 - M46.1) 06/01/2024 Other spondylosis with radiculopathy, lumbosacral region (ICD-10 - M47.27) 04/13/2024 Other spondylosis with radiculopathy, lumbosacral region (ICD-10 - M47.27) 02/17/2024 Sacroiliitis, not elsewhere classified (ICD-10 - M46.1) 12/23/2023 Primary hypertension (ICD-10 - I10) Blood pressure is well-controlled on current therapies. 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 We will monitor with in-office testing (rapid testing) today and review the results prior to dispensing prescription. All positive results will be sent for quantitative analysis to ensure accuracy and quantify amounts. Any expected positive results that return negative will also be sent for quantitative analysis. Any questionable read or any medication we cannot test for in the office confidently will be sent for quantitative analysis, as well. Patient has been made aware of this policy and agrees to abide by our urine testing policy. 12/10/2024 Unspecified abnormalities of gait and mobility (ICD-10 - R26.9) 12/10/2024 Other Suni Fierro am scribing for Dr. Maxwell Newman. I, Dr. Maxwell Newman, personally performed the services described in this documentation, as scribed by Suni Khan, and it is both accurate and complete. 02/17/2024 Other Yosi Fierro am scribing for Maxwell Newman. Maxwell Fierro, personally performed the services described in this documentation , as scribed by Yosi Hwang, and it is both accurate and complete. 04/13/2024 Yosi Schroeder am scribing for Dr. Maxwell Newman. Dr. Maxwell Fierro, personally performed the services described in this documentation , as scribed by Yosi Hwang, and it is both accurate and complete. 06/01/2024 Other Yosi Fierro am scribing for Dr. Maxwell Newman. I, Dr. Maxwell Newman, personally performed the services described in this documentation, as scribed by Yosi Hwang, and it is both accurate and complete. Plan Of Treatment Pending Test Test Name Order Date XR Outside CD 08/02/2020 zzzMRI Outside CD 08/08/2020 zzzMRI Outside CD 08/10/2020 Electrocardiogram (EKG) - 16240 10/16/19 Next Appt Details Provider Name:Antoinette Emanuel [place], 02/03/2025 01:20:00 PM, [address] [place], [address], Insurance Providers Payer Name Payer Address Payer Phone Subscriber Number Group Number Insured Name Patient Relationship to Insured Coverage Start Date Coverage End Date [employer] [address] [place] [phone] [id number] Phan Skinner Self - patient is the insured Medical (General) History Medical History History ICD Code Hypertension Hyperlipidemia Dysphagia Gastroesophageal reflux disease Hypothyroidism Depression Chronic post-traumatic stress disorder Sciatica Degeneration of lumbar intrevertebral di nm Idiopathic peripheral neuropathy Neurocognitive disorder arthritis emphysema anxiety High Cholesterol COVID Vaccinated COVID Surgical History Surgery Date(Month/Year) left hip replacement cervical spine fusion cholecystectomy Umbilical hernia repair Myringotomy with tube placement Hip surgery Neck surgery Hospitalization History Reason Date(Month/Year) see surgical hx
--- OUTSIDE RECORDS SUMMARY | 2024-12-14 09:45 | XMS_ITS | Encounter Summary ---
Author Organization [facility] Address [address] 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
--- OUTSIDE RECORDS SUMMARY | 2024-12-14 09:45 | XMS_ITS | Clinical Summary ---
Author Organization [facility] Address [address] [place] [address] Phone Care Team Providers Care Trimmer Machine Operator Name Role Phone Jeffery Sandoval MD Primary Care Provider [phone] Allergies Active Allergy Reactions Criticality Noted Date Comments Gabapentin Other (See Comments) 12/09/2013 Quinine Rash Low 08/26/2003 Shellfish Containing Products Hives High 2003 Medications nystatin (MYCOSTATIN) 100,000 unit/gram Cream 9 Active naloxone (NARCAN) 4 mg/spray [place], Non-Aerosol EMERGENCY USE ONLY: Administer 1 spray (4 mg) in one nostril one time. May repeat in alternating nostrils every 2-3 min until responsive or EMS arrives. 2 Each 3 0 Active Additional Information Patient not taking.Reported on 03/28/2021 albuterol HFA 90 mcg inhaler Take 2 Puffs by inhalation every 6 hours as needed for Shortness of Breath. 8.5 Gram 5 0 Active Additional Information Patient not taking.Reported on 11/23/2022 cpap regional medical director CPAP@ [facility] with heated humidifier; Face to Face within 6 mo: yes; Length of Need: 99 mo; full face mask with headgear q 6 mo; mask only q 3 mo;1cushions q mo; Tubing Heated Yes; non-heated No 1/ 3 mo; H20 Chamber 1/ 6 mo; chin strap/ 6 mo; filters (disp 2 / mo, perm 1 /6 mo) 1 Each PRN 0 Active traMADoL (ULTRAM) 50 mg tablet Take 100 mg by mouth every 8 hours as needed for Pain. Active oxyCODONE-aceta minophen (PERCOCET) 10-325 mg Tablet Take 1 Tablet by mouth every 6 hours as needed for Pain, Severe. Active PREGABALIN ORAL Take 1 Tablet by mouth 3 times daily. Active levothyroxine sodium (LEVOTHYROXINE ORAL) Take 125 mcg by mouth daily. Active Triamcinolone Acetonide (KENALOG) 0.025 % Ointment APPLY LIGHTLY TO AFFECTED AREA(S) TWICE DAILY NEEDED FOR RASH. (EXTERNAL USE ONLY) 1 Active diclofenac sodium (VOLTAREN) 1 % gel APPLY 4 GM TO AFFECTED AREA(S) FOUR TIMES A DAY NEEDED FOR PAIN/INFLAMMATION ; NOT MORE THAN 16 GRAMS DAILY TO ANY LOWER EXTREMITY JOINT. NOT MORE THAN 8 GRAMS DAILY TO ANY UPPER EXTREMITY JOINT. MAX 32GM/DAY OVER ALL JOINTS. (MEASURE DOSE WITH RULER ATTACHED INSIDE BOX) 1 Active budesonide-form oteroL (SYMBICORT) 80-4.5 mcg/actuation HFA Aerosol Inhaler Take 2 Puffs by inhalation 2 times daily. Active tamsulosin (FLOMAX) 0.4 mg capsule TAKE ONE CAPSULE BY MOUTH EVERY EVENING APPROXIMATELY 30 MINUTES AFTER THE SAME MEAL EACH DAY (FOR PROSTATE) 1 Active montelukast (SINGULAIR) 10 mg tablet TAKE ONE TABLET BY MOUTH ONCE A DAY 1 Active lisinopril-hydr oCHLOROthiazide (ZESTORETIC) 20-12.5 mg tablet TAKE 1 TABLET BY MOUTH EVERY MORNING FOR HEART OR BLOOD PRESSURE 1 Active simvastatin (ZOCOR) 40 mg tablet TAKE ONE-HALF TABLET BY MOUTH EVERY EVENING TO LOWER CHOLESTEROL (REPORT ANY MUSCLE PAIN OR WEAKNESS) THIS TABLET IS TO BE CUT IN HALF FOR YOUR DOSE 1 Active aspirin (ECOTRIN EC) 81 mg Tablet, Delayed Release (E.C.) Take 81 mg by mouth daily. Active tamsulosin (FLOMAX) 0.4 mg capsuleIndicati ons:Lumbosacral spondylosis without myelopathy,Gyne comastia,Idiopa thic peripheral neuropathy Take 1 Capsule (0.4 mg) by mouth daily. 30 Capsule 11 7 Active oxyCODONE-aceta minophen (PERCOCET) 10-325 mg Tablet Take 1 Tablet by mouth every 4 hours as needed for Pain, Severe. Max Daily Amount: 6 Tablets 60 Tablet 0 7 Active fluticasone propionate (FLONASE) 50 mcg/spray [place], Suspension nasal inhaler Administer 2 Sprays in each nostril daily. 8 Active omeprazole (PriLOSEC) 20 mg Capsule, Delayed Release(E.C.) 20 mg 2 times daily. 3 Active loratadine (CLARITIN) 10 mg tablet 10 mg 4 times daily. 3 Active cholecalciferol , vitamin D3, 1,000 unit 1,000 Units. 3 Active multivitamin (DAILY-VALERIA) tablet 1 Tablet. 3 Active Active Problems Problem Noted Date Diagnosed Date AWYNE on CPAP 03/28/2021 Prostatism 03/28/2021 Panlobular emphysema 01/22/2020 Hospice care patient 08/05/2019 Prediabetes 07/27/2019 Anxiety 08/28/2017 Recurrent major depressive disorder, in partial remission 08/28/2017 LEFT KAREEM (12/12/2016) 12/12/2016 Essential hypertension 11/28/2016 Benign prostatic hyperplasia 11/28/2016 Anemia 11/28/2016 Constipation 11/28/2016 S/P myringotomy with insertion of tube - left Dysfunction of left eustachian tube 11/15/2016 Primary localized osteoarthritis of left hip 09/2016 Trigger ring finger of left hand 03/07/2016 Hypogonadism, male 01/31/2016 Trigger middle finger of right hand 01/04/2016 Chronic midline low back pain without sciatica 0 09/29/2015 Mixed hyperlipidemia 09/29/2015 Chronic pain syndrome 09/29/2015 Gynecomastia, male 09/29/2015 Chronic narcotic dependence 09/29/2015 Trigger finger, left middle finger 09/29/2015 Memory change 09/29/2015 Acquired hypothyroidism 09/29/2015 Fusion of spine of cervicothoracic region 2013 Overview (07/14/2020): C5-6, 6-7, 7-1 in 2001 by Harbach Facet arthropathy, cervical 05/26/2013 Overview (07/14/2020): Bilateral C2-3 and C3-4 Chronic cholecystitis 11/03/2012 Overview (07/14/2020): 3 weeks of early satiety, wt loss, RUQ abd pain with radiation to lower abdomen Cervical vertebral fusion 11/03/2012 Gastroesophageal reflux disease Resolved Problems Problem Noted Date Diagnosed Date Resolved Date Cognitive change 08/28/2017 03/28/2021 Trigger finger of left thumb 03/04/2017 02/11/2019 Dyslipidemia 11/28/2016 01/22/2020 Preoperative general physical examination 11/28/2016 03/28/2021 Pain in both hands 01/04/2016 9 Overweight 09/29/2015 03/28/2021 Immunizations Immunization Administration Dates Next Due (ADACEL/BOOSTRIX)(10 YR UP) TDAP VACCINE, 0.5ML, IM 05/03/2022,09/01/2012 (PNEUMOVAX 23)(50 YRS UP) PN EUMOCOCCAL POLYSACCHARIDE (PPV23) 0.5 ML, IM 12/23/2017 (PREVNAR 13)(6 WKS UP) PNEUM OCOCCAL CONJUGATE (PCV13) 0.5 ML, IM 12/02/2015,11/03/2015 (SHINGRIX)(50 YRS UP) ZOSTER VACCINE RECOMBINANT, 0.5 ML, IM 08/07/2022,05/03/2022 (SPIKEVAX) (12 YRS UP PRIMAR Y SERIES) COVID-19 VACCINE - MRNA-1273(PF) 100 MCG/0.5 ML IM SUSP 10/11/2021,02/15/2021,05/17/2020,04/19 INFLUENZA VACCINE QUADRIVALE NT 6 MOS UP PF IM 02/01/2021,12/10/2019 INFLUENZA VACCINE QUADRIVALE NT ADJ 65 YR UP PF IM 01/17/2022 Influenza Seasonal Unspecifi ed Formulation IM 11/16/2022 Influenza Seasonal Unspecifi ed Formulation PF IM 05/08/2016,04/18/2015,12/09/2013 Influenza Vaccine High Dose 65+ Yrs IM 1 ,12/23/2017,12/14/2016,11/28 Influenza, Unspecified Formulation 01/13,03/31/2012,05/29/2011,06/09,01/08/2005,01/28/2003 Pneumococcal vaccine, unspec ified formulation 04/19/2014,08/26/2003 Td(adult) Unspecified Formulation 04/18/2003 Family History Medical History Relation Name Comments Healthy Brother 1 Healthy Brother 2 Healthy Brother 3 Heart Disease Brother 3 Healthy Brother 4 Healthy Brother 5 Cancer Daughter 1 leukemia Other Daughter 2 CP Cancer Father Hypertension Mother Healthy Sister 1 Healthy Sister 2 Healthy Sister 3 Healthy Sister 4 Healthy Sister 5 Healthy Son 1 Healthy Son 2 Healthy Son 3 Colon Cancer Neg Hx Relation Name Status Comments Brother 1 Alive Brother 2 Alive Brother 3 Alive Brother 4 Alive Brother 5 Alive Daughter 1 Daughter 2 Father Mother Sister 1 Alive Sister 2 Alive Sister 3 Alive Sister 4 Alive Sister 5 Alive Son 1 Alive Son 2 Alive Son 3 Alive Social History Tobacco Use Types Packs/Day Years Used Date Smoking Tobacco: Former Cigarettes Q uit: 03/18/1974 Smokeless Tobacco: Never Alcohol Use Standard Drinks/Week Comments No 0 (1 standard drink = 0.6 oz pur e alcohol) Financial Resource Strain Answer Date R ecorded How hard is it for you to pa y for the very basics like food, housing, medical care, and heating? Not very hard 03/28/2021 Food Insecurity Answer Date Recorded In the past 12 months, have you worried that your food would run out before you had money to buy more? Never true 03/28/2021 In the past 12 months, did y ou run out of food and didn't have money to buy more? Never true 03/28/2021 Transportation Needs Answer Date Record ed In the past 12 months, has l ack of transportation kept you from medical appointments or from getting medications? 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 Gender Identity Not on file Sexual Orientation Not on file Last Filed Vital Signs Vital Sign Reading Time Taken Comments Blood Pressure 126/56 11/23/2022 3:25 PM CDT Pulse 82 11/23/2022 3:25 PM CDT Temperature 37.4 C (99.4 F) 03/06/2021 2:11 PM WASTEWATER PROJECT ENGINEER Respiratory Rate 20 03/06/2021 3:31 PM WASTEWATER PROJECT ENGINEER Oxygen Saturation 95% 11/23/2022 3:25 PM CDT Inhaled Oxygen Concentration - - Weight 83.7 kg (184 lb 9.6 oz) 11/23/2022 3:25 P M CDT Height 165.1 cm (5' 5 ) 11/23/2022 3:25 PM CDT Body Mass Index 30.72 11/23/2022 3:25 PM CDT Plan of Treatment Health Maintenance Due Date Last Done Comments COLORECTAL SCREENING 06/30/2018 06/30/2013, 07/01/19 14 RSV VACCINE (60+ or ) (1 - 1-dose 75+ series) 2023 INFLUENZA VACCINE (#1) 2024 , 01/17/2022, 02/01/2021, Additional history exists COVID-19 Vaccine (2024-2 6 season) 2024 10/11/2021, 02/15/2021, 05/17/2020, Additional history exists DTAP/TDAP/TD VACCINES (3 - T d or Tdap) 05/03/2032 05/03/2022, 09/01/2012, 04/18/2003 PNEUMOCOCCAL VACCINE 50+ YEARS Completed 1 , 12/02/2015, 11/03/2015, Additional history exists ZOSTER VACCINE Completed 08/07/2022, 05/03/2022 Medical Devices Implanted Type Area Cold Roll Operator Device Identifier Shelf Expiration Date Model / Serial / Lot Tube Vent Kyler Mcrgl 1.27mm [id number] - [id number] Implanted:Qty: 1 on 11/02/2016 by Malini Truong DO Ear Left: Ear [employer] 04/19/2020 [id number] / / [id number] Head Fem Oxnm 02/28 Tpr 36mm [id number] - [id number] Implanted:Qty: 1 on 12/12/2016 by Moise Bowser III, MD Hip Left: Hip [employer] NEPHEW [employer]O 10/21/2026 [id number] / / [id number] Liner R3 Xlpe 20d 9080-0922 - [id number] Implanted:Qty: 1 on 12/12/2016 by Moise Bowser III, MD Hip Left: Hip [employer] NEPHEW ORTHO 09/01/2026 [id number] / / [id number] Shell R3 3hl 58mm [id number] - [id number] Implanted:Qty: 1 on 12/12/2016 by Moise Bowser III, MD Hip Left: Hip [employer] NEPHEW ORTHO 07/15/2026 [id number] / / [id number] Stem Fem Polarstem Lat Sz1 [id number] - [id number] Implanted:Qty: 1 on 12/12/2016 by Moise Bowser III, MD Hip Left: Hip [employer] NEPHEW ORTHO 08/07/2023 [id number] / / [id number] Mesh Ventralight St 4x6in [id number] - [id number] Implanted:Qty: 1 on 12/16/2012 by Uziel Khan DO Mesh N/A: Umbilical CR [employer] 10/16/2014 [id number] / / [id number] Screw Sphrcl Hd 6.5x20mm [id number] - [id number] Implanted:Qty: 1 on 12/12/2016 by Moise Bowser III, MD Screw Left: Hip [employer] NEPHEW [employer] 06/04/2026 [id number] / / [id number] Insurance [employer] [place] [address] MEDICARE PART A AND B * Guarantor: PHAN SKINNER Account Type Relation to Patient Date of Phone Billing Address Personal/Family [address] [place] [id number] [employer] (INTERNAL) [facility] Advance Directives For more information, please contact: [phone] Documents on File Type Date Recorded Patient Shaper Set Up Operator Expl anation Advance Directive POA 12/12/2016 7:58 AM A dvance Directive POA Advance Directive Living Will 12/12/2016 7:58 AM Advance Directive Living Will Care Teams Trimmer Machine Operator Relationship Specialty Start Date End Date Jeffery Sandoval MD [address] [phone] PCP - General Internal Medicine 11/04/20
--- OUTSIDE RECORDS SUMMARY | 2024-12-14 09:45 | XMS_ITS | Encounter Summary ---
Author Organization [facility] Address [address] [place] [address] Care Team Providers Care Fire Equipment Operator Name Role Phone Sreedhar Ramirez MD Primary Care Provider [phone] Encounter Details Date Type Department Care Team (Latest Contact Info) Description 05/10/2000 Outpatient Historical [facility] Dermatology- [facility] [address] [place] [phone] Bob Gilbert MD NO ADDRESS ON FILE Benign kari skin trunk (Primary Dx) Social History Tobacco Use Types Packs/Day Years Used Date Smoking Tobacco: Never Assessed Sex and Gender Information Value Date Recorded Sex Assigned at Not on file Legal Sex Male 4:19 AM 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
--- OUTSIDE RECORDS SUMMARY | 2024-12-14 09:45 | XMS_ITS | Encounter Summary ---
Author Organization [facility] Address [address] 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
--- OUTSIDE RECORDS SUMMARY | 2024-12-14 09:45 | XMS_ITS | Encounter Summary ---
Author Organization [facility] Address [address] [place] [address] Care Team Providers Care Ion Exchange Operator Name Role Phone Sreedhar Ramirez MD Primary Care Provider [phone] Encounter Details Date Type Department Care Team (Latest Contact Info) Description 10/27/1997 Outpatient Historical [facility] Podiatry-[facility] [place] [address] [place] [address] Arsh Guaman, DPM [address] [place] [address] Other disorders of bone and cartilage(733.99) (Primary Dx); Tenosynovitis of foot and ankle Social History Tobacco Use Types Packs/Day Years Used Date Smoking Tobacco: Never Assessed Sex and Gender Information Value Date Recorded Sex Assigned at Not on file Legal Sex Male 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
--- OUTSIDE RECORDS SUMMARY | 2024-12-14 09:45 | XMS_ITS | Encounter Summary ---
Author Organization [facility] Address [address] [place] [address] Care Team Providers Care Highway Engineering Technician Name Role Phone Sreedhar Ramirez MD Primary Care Provider [phone] Encounter Details Date Type Department Care Team (Latest Contact Info) Description 05/10/2000 Outpatient Historical [facility] Sean Stroud MD [address] [place] [address] Brachial neuritis or radiculitis NOS (Primary Dx); Cervical disc displacmnt; Cervical spondylosis; Cervicalgia Social History Tobacco Use Types Packs/Day Years Used Date Smoking Tobacco: Never Assessed Sex and Gender Information Value Date Recorded Sex Assigned at Not on file Legal Sex Male 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 Gender Identity Not on file Sexual Orientation Not on file documented as of this encounter Plan of Treatment Not on file documented as of this encounter Visit Diagnoses Diagnosis Brachial neuritis or radiculitis NOS- Primary Brachial neuritis or radiculitis nos Cervical disc displacmnt Displacement of cervical intervertebral disc without myelopathy Cervical spondylosis Cervical spondylosis without myelopathy Cervicalgia documented in this encounter Care Teams Highway Engineering Technician Relationship Specialty Start Date End Date Sreedhar Ramirez MD [address] [facility] [address] [place] [phone] PCP - General Internal Medicine 09/29/15 documented as of this encounter
--- OUTSIDE RECORDS SUMMARY | 2024-12-14 09:45 | XMS_ITS | Clinical Summary ---
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 Active lisinopril-hydro chlorothiazide (ZESTORETIC) 10-12.5 mg Oral tablet Take 1 Tab by mouth daily. Active simvastatin (ZOCOR) 20 mg Oral tablet Take 20 mg by mouth Daily LATE. Active pregabalin (LYRICA) 100 mg Capsule Take 100 mg by mouth every 8 hours . Active tamsulosin (FLOMAX) 0.4 mg capsuleIndicatio ns:Lumbosacral spondylosis without myelopathy,Gynec omastia,Idiopath ic peripheral neuropathy Take 1 Capsule (0.4 mg) by mouth daily. 30 Capsule 11 7 Active Additional Information Patient taking differently:0.4 mg OralDAILY AFTER SUPPER, Reported on 11/28/2016 traMADol (ULTRAM) 50 mg tablet Take 2 Tablets (100 mg) by mouth every 8 hours as needed for Pain. 15 Tablet 7 Active oxyCODONE-acetam inophen (PERCOCET) 10-325 mg Tablet Take 1 Tablet by mouth every 4 hours as needed for Pain, Severe. Max Daily Amount: 6 Tablets 60 Tablet 7 Active fluticasone (FLONASE) 50 mcg/spray [place], Suspension Administer 2 Sprays in each nostril daily. Active nystatin (MYCOSTATIN) 100,000 unit/gram Cream 9 Active naloxone (NARCAN) 4 mg/spray [place], Non-Aerosol EMERGENCY USE ONLY: Administer 1 spray (4 mg) in one nostril one time. May repeat in alternating nostrils every 2-3 min until responsive or EMS arrives. 2 Each 3 0 Active albuterol HFA 90 mcg inhaler Take 2 Puffs by inhalation every 6 hours as needed for Shortness of Breath. 8.5 Gram 5 0 Active cpap chief medical director CPAP@ 12cwp with heated humidifier; Face to Face within 6 mo: yes; Length of Need: 99 mo; full face mask with headgear q 6 mo; mask only q 3 mo;1cushions q mo; Tubing Heated Yes; non-heated No 1/ 3 mo; H20 Chamber 1/ 6 mo; chin strap/ 6 mo; filters (disp 2 / mo, perm 1 /6 mo) 1 Each 0 Active Hospital, Clinic, or Other Facility Administered Medication Ordered Dose Route Frequency Start Date End Date Status triamcinolone acetonide (KENALOG-40) injectable suspension 20 mgIndications:Trig lauren finger, right index finger 20 mg See Instruct ONE TIME ONLY 07/27/2019 Active Active Problems Problem Noted Date Diagnosed Date Panlobular emphysema 01/22/2020 Hospice care patient 08/05/2019 Prediabetes 07/27/2019 Cognitive change 08/28/2017 Anxiety 08/28/2017 Episode of recurrent major depressive disorder 0 08/28/2017 LEFT KAREEM (12/12/2016) 12/12/2016 Essential hypertension 11/28/2016 Benign prostatic hyperplasia 11/28/2016 Constipation 11/28/2016 Preoperative general physical examination 2016 Anemia 11/28/2016 Dysfunction of left eustachian tube 11/15/2016 S/P myringotomy with insertion of tube - left Primary localized osteoarthritis of left hip 09/2016 Trigger ring finger of left hand 03/07/2016 Hypogonadism, male 01/31/2016 Trigger middle finger of right hand 01/04/2016 Mixed hyperlipidemia 09/29/2015 Chronic pain syndrome 09/29/2015 Chronic midline low back pain without sciatica 0 09/29/2015 Memory change 09/29/2015 Chronic narcotic dependence 09/29/2015 Gynecomastia, male 09/29/2015 Hypothyroidism 09/29/2015 Trigger finger, left middle finger 09/29/2015 Overweight 09/29/2015 Fusion of spine of cervicothoracic region 2013 Overview (05/26/2013): C5-6, 6-7, 7-1 in 2001 by Maximus Facet arthropathy, cervical 05/26/2013 Overview (05/26/2013): Bilateral C2-3 and C3-4 Chronic cholecystitis 11/03/2012 Overview (11/03/2012): 3 weeks of early satiety, wt loss, RUQ abd pain with radiation to lower abdomen Cervical vertebral fusion 11/03/2012 Gastroesophageal reflux disease Resolved Problems Problem Noted Date Diagnosed Date Resolved Date Trigger finger of left thumb 03/04/2017 02/11/2019 Dyslipidemia 11/28/2016 01/22/2020 Pain in both hands 01/04/2016 9 Immunizations Immunization Administration Dates Next Due (PNEUMOVAX 23)(50 YRS UP) PN EUMOCOCCAL POLYSACCHARIDE (PPV23) 0.5 ML, IM 12/23/2017 (PREVNAR 13)(6 WKS UP) PNEUM OCOCCAL CONJUGATE (PCV13) 0.5 ML, IM 12/02/2015 Influenza Vaccine High Dose 65+ Yrs IM 1 ,12/23/2017,12/14/2016,11/28 Family History Medical History Relation Name Comments [...] Alive Daughter 1 Daughter 2 Father Mother Alive Sister 1 Alive Sister 2 Alive Sister 3 Alive Sister 4 Alive Sister 5 Alive Son 1 Alive Son 2 Alive Son 3 Alive Social History Tobacco Use Types Packs/Day Years Used Date Smoking Tobacco: Former Cigarettes 3 5 0 03/18/1969 - 03/18/1974 Smokeless Tobacco: Never Tobacco Cessation:Counseling Given: No Alcohol Use Standard Drinks/Week Comments No 0 (1 standard drink = 0.6 oz pur e alcohol) Sex and Gender Information Value Date Recorded Sex Assigned at Not on file Legal Sex Male 4:19 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 Gender Identity Not on file Sexual Orientation Not on file Occupation Industry Job Start Date Job End Date Not on file Not on file Not on file Not on file Not on file Not on file Not on file Not on file Last Filed Vital Signs Vital Sign Reading Time Taken Comments Blood Pressure 132/70 03/25/2020 11:11 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 PHYSICAL EDUCATION Pulse 90 03/25/2020 11:11 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 PHYSICAL EDUCATION Temperature 36.6 C (97.8 F) 08/05/2019 3:23 PM CDT Respiratory Rate 15 08/05/2019 3:23 PM CDT Oxygen Saturation 95% 03/25/2020 11:11 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 PHYSICAL EDUCATION Inhaled Oxygen Concentration - - Weight 87.1 kg (192 lb) 03/25/2020 11:11 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 PHYSICAL EDUCATION Height 167.6 cm (5' 6 ) 03/25/2020 11:11 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 PHYSICAL EDUCATION Body Mass Index 30.99 03/25/2020 11:11 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 PHYSICAL EDUCATION Plan of Treatment Health Maintenance Due Date Last Done Comments ZOSTER VACCINE (1 of 2) 1998 DTAP/TDAP/TD VACCINES (2 - T d or Tdap) 09/01/2022 09/01/2012 RSV VACCINE (60+ or ) (1 - 1-dose 75+ series) 2023 INFLUENZA VACCINE (#1) 2024 0, 12/29/2018, 12/23/2017, Additional history exists COLORECTAL SCREENING Discontinued 07/06/2013, 07/01/19 14 Colorectal Cancer Screening Discontinued PNEUMOCOCCAL VACCINE 50+ YEARS Completed 1 , 12/02/2015, 11/03/2015 FIT-DNA Q 3 years Discontinued FIT/FOBT Q 1 year Discontinued Flex Sig/CT Colonography Q 5 years Discontinued Medical Devices Implanted Type Area Log Washer Device Identifier Shelf Expiration Date Model / Serial / Lot Tube Vent Kyler Mcrgl 1.27mm [id number] - [id number] Implanted:Qty: 1 on 11/02/2016 by Malini Truong DO at [facility] Ear Left: Ear [employer] 04/19/2020 [id number] / / [id number] Liner R3 Xlpe 20d 1664-5270 - [id number] Implanted:Qty: 1 on 12/12/2016 by Moise Bowser III, MD at [facility] Hip Left: Hip [employer] NEPHEW ORTHO 09/01/2026 [id number] / / [id number] Shell R3 3hl 58mm [id number] - [id number] Implanted:Qty: 1 on 12/12/2016 by Moise Bowser III, MD at [facility] Hip Left: Hip [employer] NEPHEW ORTHO 07/15/2026 [id number] / / [id number] Head Fem Oxnm 02/28 Tpr 36mm [id number] - [id number] Implanted:Qty: 1 on 12/12/2016 by Moise Bowser III, MD at [facility] Hip Left: Hip [employer] NEPHEW ORTHO 10/21/2026 [id number] / / [id number] Stem Fem Polarstem Lat Sz1 [id number] - [id number] Implanted:Qty: 1 on 12/12/2016 by Moise Bowser III, MD at [facility] Hip Left: Hip [employer] NEPHEW ORTHO 08/07/2023 [id number] / / [id number] Mesh Ventralight St 4x6in [id number] - [id number] Implanted:Qty: 1 on 12/16/2012 by Uziel Khan DO at [facility] Mesh N/A: Umbilical CR [employer]ARD[employer] 10/16/2014 [id number] / / [id number] Screw Sphrcl Hd 6.5x20mm [id number] - [id number] Implanted:Qty: 1 on 12/12/2016 by Moise Bowser III, MD at [facility] Screw Left: Hip [employer] NEPHEW ORTHO 06/04/2026 [id number] / / [id number] [place] [id number] MEDICARE PART A [place] [employer] [place] [id number] RX [employer]D PLANS (INTERNAL) [facility] MEDICARE PART A AND [place] [employer] [place] [id number] Advance Directives For more information, please contact: [phone] Documents on File Type Date Recorded Patient Breast Buffer Expl anation Advance Directive POA 12/12/2016 7:58 AM A dvance Directive POA Advance Directive Living Will 12/12/2016 7:58 AM Advance Directive Living Will * Full Code (Latest Code Status on File) Date Activated Date Inactivated Comments 12/12/2016 1:22 PM 12/14/2016 6:07 PM * Full Code Date Activated Date Inactivated Comments 12/12/2016 9:30 AM 12/12/2016 1:22 PM * Full Code Date Activated Date Inactivated Comments 12/12/2016 7:07 AM 12/12/2016 9:30 AM * Full Code Date Activated Date Inactivated Comments 11/02/2016 11:18 AM 11/02/2016 4:02 PM * Full Code Date Activated Date Inactivated Comments 11/02/2016 9:51 AM 11/02/2016 11:18 AM Care Teams Fly Maker Relationship Specialty Start Date End Date Sreedhar Ramirez MD [address] [address] PCP - General Internal Medicine 09/29/15
--- OUTSIDE RECORDS SUMMARY | 2024-12-14 09:45 | XMS_ITS | Encounter Summary ---
Author Organization [facility] Address [address] [place] [address] Care Team Providers Care Core Java Software Engineer Name Role Phone Sreedhar Ramirez MD Primary Care Provider [phone] Encounter Details Date Type Department Care Team (Latest Contact Info) Description 09/18/1999 Outpatient Historical [facility] Jeffery Aguilar MD [address] [place] [address] Brachial neuritis or radiculitis NOS (Primary Dx) Social History Tobacco Use Types Packs/Day Years Used Date Smoking Tobacco: Never Assessed Sex and Gender Information Value Date Recorded Sex Assigned at Not on file 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
--- OUTSIDE RECORDS SUMMARY | 2024-12-14 09:45 | XMS_ITS | Encounter Summary ---
Author Organization [facility] Address [address] [place] [address] Care Team Providers Care Manager Hematology Name Role Phone Sreedhar Ramirez MD Primary Care Provider [phone] Encounter Details Date Type Department Care Team (Latest Contact Info) Description 01/31/1999 Outpatient Historical [facility] Jomar Holt [address] [place] [address] Swelling, mass, or lump in head and neck (Primary Dx) Social History Tobacco Use Types Packs/Day Years Used Date Smoking Tobacco: Never Assessed Sex and Gender Information Value Date Recorded Sex Assigned at Not on file 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
--- OUTSIDE RECORDS SUMMARY | 2024-12-14 09:45 | XMS_ITS | Encounter Summary ---
Author Organization [facility] Address [address] [place] [address] Care Team Providers Care Income Tax Manager Name Role Phone Sreedhar Ramirez MD Primary Care Provider [phone] Reason for Referral * Outpatient Services (Routine) - Closed Specialty Diagnoses / Procedures Referred By Kristin rivera Referred To Contact Diagnoses Pain Procedures XR FLUORO NEEDLE GUIDANCE Dimitrios Darnell MD Referral ID Status Reason Start Date Expiration Date Visits Re quested Visits Authorized [id number] Closed 02/28/2016 03/30/2017 1 1 TIVE INTERN Encounter Details Date Type Department Care Team (Late st Contact Info) Description 02/28/2016 Ancillary Orders [facility] Pain Management Procedures [place] [address] [place] [id number] Dimitrios Darnell MD NO ADDRESS ON FILE Pain Social History Tobacco Use Types Packs/Day Years Used Date Smoking Tobacco: Former Cigarettes 0 12/15/1969 - 12/15/1974 Smokeless Tobacco: Never Alcohol Use Standard Drinks/Week Comments Yes 0 (1 standard drink = 0.6 oz pur e alcohol) occasional Sex and Gender Information Value Date Recorded Sex Assigned at Not on file Legal Sex Male 4:19 AM CREATIVE INTERN Gender Identity Not on file Sexual Orientation Not on file Occupation Industry Job Start Date Job End Date Not on file Not on file Not on file Not on file Not on file Not on file Not on file Not on file documented as of this encounter Plan of Treatment Not on file documented as of this encounter Results * XR FLUORO NEEDLE GUIDANCE (02/28/2016 7:28 AM CREATIVE INTERN) Narrative Jose Chi, RT - 02/28/2016 7:29 AM CREATIVE INTERN Order information only. Exam was auto-finalized. us Dimitrios Darnell MD DIAGNOSTIC IMAGING ORDERAB LES Final Result documented in this encounter Visit Diagnoses Diagnosis Pain Generalized pain Pain Generalized pain documented in this encounter Care Teams Income Tax Manager Relationship Specialty Start Date End Date Sreedhar Ramirez MD [address] [phone] PCP - General Internal Medicine 09/29/15 documented as of this encounter
--- OUTSIDE RECORDS SUMMARY | 2024-12-14 09:45 | XMS_ITS | Encounter Summary ---
Author Organization [facility] Address [address] [place] [address] Care Team Providers Care Security Associate Name Role Phone Sreedhar Ramirez MD Primary Care Provider [phone] Encounter Details Date Type Department Care Team (Latest Contact Info) Description 01/26/1999 Outpatient Historical [facility] Jomar Holt [address] [place] [address] Swelling, mass, or lump in head and neck (Primary Dx); Other diseases of vocal cords Social History Tobacco Use Types Packs/Day Years Used Date Smoking Tobacco: Never Assessed Sex and Gender Information Value Date Recorded Sex Assigned at Not on file 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
--- OUTSIDE RECORDS SUMMARY | 2024-12-14 09:45 | XMS_ITS | Encounter Summary ---
Author Organization [facility] Address [address] [place] [address] Care Team Providers Care System Software Developer Name Role Phone Sreedhar Ramirez MD Primary Care Provider [phone] Encounter Details Date Type Department Care Team (Latest Contact Info) Description 05/28/1997 Outpatient Historical [facility] [place] [facility] Jomar Holt [address] [place] [address] Sensorineural hearing loss, unspecified (Primary Dx) Social History Tobacco Use Types Packs/Day Years Used Date Smoking Tobacco: Never Assessed Sex and Gender Information Value Date Recorded Sex Assigned at Not on file Legal Sex Male 4:19 AM SIGN HANGER SUPERVISOR Gender Identity Not on file Sexual Orientation Not on file documented as of this encounter Plan of Treatment Not on file documented as of this encounter Visit Diagnoses Diagnosis Sensorineural hearing loss, unspecified- Primary documented in this encounter Care Teams System Software Developer Relationship Specialty Start Date End Date Sreedhar Ramirez MD [address] [address] PCP - General Internal Medicine 09/29/15 documented as of this encounter
--- OUTSIDE RECORDS SUMMARY | 2024-12-14 09:45 | XMS_ITS | Encounter Summary ---
Author Organization [facility] Address [address] [facility] [place] [address] Care Team Providers Care Therapist'S Assistant Name Role Phone Sreedhar Ramirez MD Primary Care Provider [phone] Encounter Details Date Type Department Care Team (Latest Contact Info) Description 03/07/1998 Outpatient [facility] Podiat[facility]-Saqib [place] [address] [place] [address] Arsh Guaman, DPM [address] [place] [address] Plantar nerve lesion (Primary Dx) Social History Tobacco Use Types Packs/Day Years Used Date Smoking Tobacco: Never Assessed Sex and Gender Information Value Date Recorded Sex Assigned at Not on file Legal Sex Male 4:19 AM AIRLINE LOUNGE RECEPTIONIST Gender Identity Not on file Sexual Orientation Not on file documented as of this encounter Plan of Treatment Not on file documented as of this encounter Visit Diagnoses Diagnosis Plantar nerve lesion- Primary Lesion of plantar nerve documented in this encounter Care Teams Therapist'S Assistant Relationship Specialty Start Date End Date Sreedhar Ramirez MD [address] [place] [address] PCP - General Internal Medicine 09/29/15 documented as of this encounter
--- OUTSIDE RECORDS SUMMARY | 2024-12-14 09:46 | XMS_ITS | Encounter Summary ---
Author Organization [facility] Address [address] 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
--- OUTSIDE RECORDS SUMMARY | 2024-12-14 09:46 | XMS_ITS | Encounter Summary ---
Author Organization [facility] Address [address] Santiago: Epic Prelude ADT [place] [address] Care Team Providers Care Aviation Electronic Warfare Operator Name Role Phone Sreedhar Ramirez MD Primary Care Provider [phone] Encounter Details Date Type Department Care Team (Late st Contact Info) Description 02/06/2000 Inpatient Historical Sean Stroud MD [address] [place] [address] Social History Tobacco Use Types Packs/Day Years Used Date Smoking Tobacco: Never Assessed Sex and Gender Information Value Date Recorded Sex Assigned at Not on file Legal Sex Male 4:19 AM ANALYTICAL TECH Gender Identity Not on file Sexual Orientation Not on file documented as of this encounter Plan of Treatment Not on file documented as of this encounter Visit Diagnoses Not on filedocumented in this encounter Care Teams Aviation Electronic Warfare Operator Relationship Specialty Start Date End Date Sreedhar Ramirez MD [address] [facility] [address] [place] [address] PCP - General Internal Medicine 09/29/15 documented as of this encounter
--- OUTSIDE RECORDS SUMMARY | 2024-12-14 09:46 | XMS_ITS | Encounter Summary ---
Author Organization [facility] Address [address] 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
--- OUTSIDE RECORDS SUMMARY | 2024-12-14 09:46 | XMS_ITS | Encounter Summary ---
Author Organization [facility] Address [address] [place] [address] Care Team Providers Care Branch Operation Evaluation Manager Name Role Phone Sreedhar Ramirez MD Primary Care Provider [phone] Encounter Details Date Type Department Care Team (Latest Contact Info) Description 09/18/1999 Outpatient Historical [facility] Jomar Holt [address] [place] [address] Other diseases of vocal cords (Primary Dx) Social History Tobacco Use Types Packs/Day Years Used Date Smoking Tobacco: Never Assessed Sex and Gender Information Value Date Recorded Sex Assigned at Not on file 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
--- OUTSIDE RECORDS SUMMARY | 2024-12-14 09:46 | XMS_ITS | Encounter Summary ---
Author Organization [facility] Address [address] [place] [address] Care Team Providers Care Program Engagement Director Name Role Phone Sreedhar Ramirez MD Primary Care Provider [phone] Encounter Details Date Type Department Care Team (Latest Contact Info) Description 09/25/2001 Outpatient Historical [facility] Kylie Espinosa, PhD ESOPHAGEAL REFLUX (Primary Dx); VOICE DISTURBANCE NEC; VOCAL CORD DISEASE NEC Social History Tobacco Use Types Packs/Day Years Used Date Smoking Tobacco: Never Assessed Sex and Gender Information Value Date Recorded Sex Assigned at Not on file 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
--- OUTSIDE RECORDS SUMMARY | 2024-12-14 09:46 | XMS_ITS | Encounter Summary ---
Author Organization [facility] Address [address] [place] [address] Care Team Providers Care Registered Nurse Cardiovascular Icu Name Role Phone Sreedhar Ramirez MD Primary Care Provider [phone] Encounter Details Date Type Department Care Team (Latest Contact Info) Description 12/08/1999 Outpatient Historical [facility] Sean Stroud MD [address] [place] [address] Brachial neuritis or radiculitis NOS (Primary Dx); Cervical spondylosis; Cervical disc displacmnt; Cervicalgia Social History Tobacco Use Types Packs/Day Years Used Date Smoking Tobacco: Never Assessed Sex and Gender Information Value Date Recorded Sex Assigned at Not on file 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 Gender Identity Not on file Sexual Orientation Not on file documented as of this encounter Plan of Treatment Not on file documented as of this encounter Visit Diagnoses Diagnosis Brachial neuritis or radiculitis NOS- Primary Brachial neuritis or radiculitis nos Cervical spondylosis Cervical spondylosis without myelopathy 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
--- OUTSIDE RECORDS SUMMARY | 2024-12-14 09:46 | XMS_ITS | Encounter Summary ---
Author Organization [facility] Address [address] [place] [address] Care Team Providers Care Associate Financial Planner Name Role Phone Sreedhar Ramirez MD Primary Care Provider [phone] Encounter Details Date Type Department Care Team (Latest Contact Info) Description 01/05/2000 Outpatient Historical [facility] Sean Stroud MD [address] [place] [address] Cervical spondylosis (Primary Dx); Cervical disc displacmnt; Cervicalgia Social History Tobacco Use Types Packs/Day Years Used Date Smoking Tobacco: Never Assessed Sex and Gender Information Value Date Recorded Sex Assigned at Not on file 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 Gender Identity Not on file Sexual Orientation Not on file documented as of this encounter Plan of Treatment Not on file documented as of this encounter Visit Diagnoses Diagnosis Cervical spondylosis- Primary Cervical spondylosis without myelopathy Cervical disc 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
--- OUTSIDE RECORDS SUMMARY | 2024-12-14 09:46 | XMS_ITS | Encounter Summary ---
Author Organization [facility] Address [address] [place] [address] Care Team Providers Care Internal Control Analyst Name Role Phone Sreedhar Ramirez MD Primary Care Provider [phone] Encounter Details Date Type Department Care Team (Latest Contact Info) Description 03/16/2003 Outpatient Historical [facility] 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 Gender Identity Not on file Sexual Orientation Not on file documented as of this encounter Plan of Treatment Not on file documented as of this encounter Visit Diagnoses Diagnosis Cervical spondylosis- Primary Cervical spondylosis without myelopathy Cervicalgia Lateral epicondylitis Lateral epicondylitis of elbow documented in this encounter Care Teams Internal Control Analyst Relationship Specialty Start Date End Date Sreedhar Ramirez MD [address] [facility] [address] [place] [phone] PCP - General Internal Medicine 09/29/15 documented as of this encounter
--- OUTSIDE RECORDS SUMMARY | 2024-12-14 09:46 | XMS_ITS | Encounter Summary ---
Author Organization [facility] Address [address] [place] [address] Care Team Providers Care Transportation Technician Name Role Phone Sreedhar Ramirez MD Primary Care Provider [phone] Encounter Details Date Type Department Care Team (Latest Contact Info) Description 10/17/1999 Outpatient Historical [facility] Sean Stroud MD [address] [place] [address] Brachial neuritis or radiculitis NOS (Primary Dx); Cervical spondylosis; Cervical disc displacmnt; Cervicalgia Social History Tobacco Use Types Packs/Day Years Used Date Smoking Tobacco: Never Assessed Sex and Gender Information Value Date Recorded Sex Assigned at Not on file 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 Gender Identity Not on file Sexual Orientation Not on file documented as of this encounter Plan of Treatment Not on file documented as of this encounter Visit Diagnoses Diagnosis Brachial neuritis or radiculitis NOS- Primary Brachial neuritis or radiculitis nos Cervical spondylosis Cervical spondylosis without myelopathy Cervical disc displacmnt Displacement of cervical intervertebral disc without myelopathy Cervicalgia documented in this encounter Care Teams Transportation Technician Relationship Specialty Start Date End Date Sreedhar Ramirez MD [address] [facility] [address] [place] [phone] PCP - General Internal Medicine 09/29/15 documented as of this encounter
--- OUTSIDE RECORDS SUMMARY | 2024-12-14 09:46 | XMS_ITS | Encounter Summary ---
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
--- OUTSIDE RECORDS SUMMARY | 2024-12-14 09:46 | XMS_ITS | Encounter Summary ---
Author Organization [facility] Address [address] [facility] [place] [address] Care Team Providers Care Mucker Cofferdam Name Role Phone Sreedhar Ramirez MD Primary Care Provider [phone] Encounter Details Date Type Department Care Team (Latest Contact Info) Description 02/28/2001 Outpatient Historical [facility] Sean Stroud MD [address] [place] [address] Cervical spondylosis (Primary Dx); CERVICALGIA; JOINT PAIN-L/LEG Social History Tobacco Use Types Packs/Day Years Used Date Smoking Tobacco: Never Assessed Sex and Gender Information Value Date Recorded Sex Assigned at Not on file 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
--- OUTSIDE RECORDS SUMMARY | 2024-12-14 09:46 | XMS_ITS | Encounter Summary ---
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
--- OUTSIDE RECORDS SUMMARY | 2024-12-14 09:46 | XMS_ITS | Encounter Summary ---
Author Organization [facility] Address [address] [address] [facility] [address] 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 [facility] [address] [place] [phone] PCP - General Internal Medicine 09/29/15 documented as of this encounter
--- OUTSIDE RECORDS SUMMARY | 2024-12-14 09:46 | XMS_ITS | Encounter Summary ---
Author Organization [facility] Address [address] [place] [address] Care Team Providers Care Remote Encoding Center Manager Name Role Phone Sreedhar Ramirez MD Primary Care Provider [phone] Encounter Details Date Type Department Care Team (Latest Contact Info) Description 12/10/2006 Outpatient Historical [facility] 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
--- OUTSIDE RECORDS SUMMARY | 2024-12-14 09:46 | XMS_ITS | Encounter Summary ---
Author Organization [facility] Address [address] [place] [address] Care Team Providers Care Environmental Services Lead Name Role Phone Sreedhar Ramirez MD Primary Care Provider Encounter Details Date Type Department Care Team (Latest Contact Info) Description 08/15/2001 Outpatient Historical [facility] Ear, Nose [facility] Throat 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
--- OUTSIDE RECORDS SUMMARY | 2024-12-14 09:46 | XMS_ITS | Encounter Summary ---
Author Organization [facility] Address [address] [place] [address] Care Team Providers Care Land Department Head Name Role Phone Sreedhar Ramirez MD Primary Care Provider [phone] Encounter Details Date Type Department Care Team (Latest Contact Info) Description 04/10/2002 Outpatient Historical [facility] Sean Stroud MD [address] [place] [address] Cervical spondylosis (Primary Dx); CERVICALGIA Social History Tobacco Use Types Packs/Day Years Used Date Smoking Tobacco: Never Assessed Sex and Gender Information Value Date Recorded Sex Assigned at Not on file 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
--- OUTSIDE RECORDS SUMMARY | 2024-12-14 09:46 | XMS_ITS | Encounter Summary ---
Author Organization [facility] Address [address] 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
--- OUTSIDE RECORDS SUMMARY | 2024-12-14 09:46 | XMS_ITS | Encounter Summary ---
Author Organization [facility] Address [address] [place] [address] Care Team Providers Care Outer Diameter Technician Name Role Phone Sreedhar Ramirez MD Primary Care Provider [phone] Encounter Details Date Type Department Care Team (Late st Contact Info) Description 12/10/2006 Outpatient Historical [facility] Ear, Nose and Throat 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
--- OUTSIDE RECORDS SUMMARY | 2024-12-14 09:46 | XMS_ITS | Encounter Summary ---
Author Organization [facility] Address [address] [place] [address] Care Team Providers Care Optical Mechanic Apprentice Name Role Phone Sreedhar Ramirze MD Primary Care Provider [phone] Encounter Details Date Type Department Care Team (Latest Contact Info) Description 01/15/2007 Outpatient Historical [facility] Central Processing [address] [place] [address] Martin Mcneil MD NO ADDRESS ON FILE Benign Neoplasm of Skin of Trunk, except Scrotum (Primary Dx) Social History Tobacco Use Types Packs/Day Years Used Date Smoking Tobacco: Never Assessed Sex and Gender Information Value Date Recorded Sex Assigned at Not on file 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
[2024-12-14 09:58] VITALS: BP 126/77; PULSE 66; RESP 16; TEMP 36.7; O2SAT 96; BMI 28.3
[2024-12-14 10:25] LABS: Hematocrit 39.2 % (37-53); Hemoglobin 13.20 g/dL (11.27-16.99); Mean Corpuscular HGB Conc 33.7 g/dL (30-55); Mean Corpuscular Hemoglobin 29.5 pg (27-33); Mean Corpuscular Volume 87.5 fl (82-101); Nucleated Red Blood Cells % 0 %; Platelet Count 237 10^3/cmm (157-399); Red Blood Count 4.48 10^6/uL (3.85-5.65); White Blood Count 5.59 10^3/uL (3.29-11.43)
[2024-12-14 10:35] LABS: Alanine Aminotransferase 10 U/L (0-41); Albumin Level 4.6 g/dL (3.5-5.2); Alkaline Phosphatase 70 U/L (40-130); Anion Gap 15.1 (5-19); Aspartate Amino Transferase 16 U/L (0-40); Blood Urea Nitrogen 16 mg/dL (8-23); Calcium 9.5 mg/dL (8.5-10.5); Carbon Dioxide 26 mmol/L (22-29); Chloride 102 mmol/L (98-107); Creatinine Clr Calc Pharmacy 66.9080; Globulin 2.8 g/dL (1.3-4.6); Glucose 118 mg/dL (65-115); Osmolality Calculated 290 mOsm/kg (285-295); Potassium 4.1 mmol/L (3.5-5.1); Sodium 139 mmol/L (136-145); Total Protein 7.4 g/dL (6.6-8.7)
--- NOTE | 2024-12-14 10:52 | US_ITS ---
WS: [id number] ULTRASOUND SOFT TISSUES medial LEFT thigh. HISTORY: Hematoma medial distal left thigh COMPARISON: None available. TECHNIQUE: 2-D and color Doppler imaging is submitted. Along the medial LEFT thigh is a complex fluid collection which corresponds to the palpable abnormality. This is a fluid collection with internal debris and septations. The collection measures 4.3 x 4.8 x 2.1 cm with no internal vascularity. This is most consistent with a subcutaneous hematoma. This does not appear to be within the muscle groups of the thigh. US/US soft tissue/extremity [id number] IMPRESSION: Complex collection in the subcu soft tissues of the medial LEFT thigh measures 4.3 x 4.8 x 2.1 cm. Most consistent with a hematoma. Additional etiologies to c robertaider are seroma or abscess but these are thought much less likely.
--- NOTE | 2024-12-14 10:53 | W.ED.EXTPRO ---
HPI - Extremity Problem General: Chief complaint: Extremity Problem,Nontraumatic Stated complaint: infection on left leg Time Seen by Provider: 12/14/24 09:51 History of Present Illness: 74-year-old male presents to the emergency room with complaint of what he describes an infection in his left thigh. He got his leg caught in a gate last week. Since then he has began to develop some swelling in his medial distal left thigh it is painful to the touch [place] over the weekend at the [place] emergency room. He was seen at [place] ER they started him on cephalexin. He has not had any fever sweats chills he is not on any anticoagulants. Associated symptoms: Deny chest pain, fever(s) or rash Related Data Home Medications ?Medication ?Instructions ?Recorded ?Confirmed cholecalciferol (vitamin D3) 25 1,000 unit PO DAILY 04/01/19 12/14/24 mcg (1,000 unit) capsule multivitamin 1 tab PO QAM 04/01/19 12/14/24 simvastatin 40 mg tablet 20 mg PO QPM 04/01/19 12/14/24 tamsulosin 0.4 mg capsule (Flomax) 0.4 mg PO QPM 04/01/19 12/14/24 levothyroxine 125 mcg tablet 125 mcg PO DAILY 06/25/19 12/14/24 (Synthroid) lisinopril 20 1 tab PO DAILY 06/25/19 12/14/24 mg-hydrochlorothiazide 12.5 mg tablet albuterol sulfate 90 mcg/actuation 2 inh inhalation Q6H PRN Shortness 10/21/19 12/14/24 breath activated powder inhaler Of Breath diclofenac sodium 1 % topical gel 4 g topical QID PRN pain 12/14/24 12/14/24 (Voltaren Arthritis Pain) fluticasone propionate 50 1 spray intranasal DAILY PRN 12/14/24 12/14/24 mcg/actuation nasal allergy symptoms spray,suspension oxycodone-acetaminophen 10 mg-325 1 tab PO QID PRN Pain 12/14/24 12/14/24 mg tablet tiotropium bromide 1.25 2 puff inhalation DAILY PRN 12/14/24 12/14/24 mcg/actuation mist for inhalation Shortness Of Breath (Spiriva Respimat) Previous Rx's ?Medication ?Instructions ?Recorded loratadine 5 mg disintegrating 5 mg PO BID #60 tabs 11/25/19 tablet (Claritin RediTabs) montelukast 10 mg tablet 10 mg PO DAILY #30 tabs 12/28/19 (Singulair) cock up splint #2 ea 04/26/20 budesonide-formoterol HFA 160 2 puff inhalation BID #10.2 grams 08/16/20 mcg-4.5 mcg/actuation aerosol inhaler (Symbicort) ipratropium 0.5 mg-albuterol 3 mg 3 ml inhalation Q6H PRN wheezing 03/21/21 (2.5 mg base)/3 mL nebulization #180 mL soln betamethasone dipropionate 0.05 % See Rx Instructions .Route 01/14/23 topical cream .COMPLEX #45 grams clotrimazole 1 % topical cream See Rx Instructions .Route 01/14/23 .COMPLEX #30 grams L3221 Orthopedic shoes and L3010 #1 ea 01/21/23 Soft,MARIYA top cover, accomodative cutout for 5 met head bilaterally Allergies Allergy/AdvReac Type Severity Reaction Status Date / Time shellfish derived Allergy Unknown Verified 07/16/23 10:32 Review of Systems Const: Denies: fever(s) or chills Card: Denies: chest pain Resp: Denies: dyspnea GI: Denies: abdominal pain : Denies: dysuria, urinary frequency or urinary urgency Musc: Denies: neck pain or back pain Skin/Breast: Denies: rash PFSH ED PFSH: Medical History Right carpal tunnel syndrome Idiopathic neuropathy Facet joint disease DDD (degenerative disc disease), lumbar Encounter for long-term opiate analgesic use Surgical History Hx of cholecystectomy 12/2012 and umbilical hernia Hx of fusion of cervical spine [facility] 2000 C5-6 C6-7 Family History Mother , natural causes Cancer skin cancer Father Cancer prostate cancer Social History Smoking and tobacco/nicotine status: former use of tobacco/nicotine Quit status (tobacco/nicotine): has quit using Year quit tobacco: 1970 - 2PPD x 5 Years Second hand smoke exposure: No Alcohol intake: never Substance/Drug Use: never Lives independently: Yes Household members: significant other Housing: House Marital status: service: Yes Current occupational status: retired Pets and animals: Yes Do you think of yourself as: Straight/Heterosexual Current gender identity: Male Physical Exam Const: COMMON NORMALS: no acute distress GENERAL APPEARANCE: cooperative and comfortable ORIENTATION/CONSCIOUSNESS: Yes awake, Yes oriented to person, Yes oriented to place and Yes oriented to time HENMT: COMMON NORMALS: normocephalic, atraumatic and hearing grossly normal bilaterally HEAD & SCALP: normocephalic and atraumatic Resp: COMMON NORMALS: normal respiratory effort, No retractions, No use of accessory muscles and clear to auscultation bilaterally AUSCULTATION: clear to auscultation bilaterally Cardio: COMMON NORMALS: regular rate, regular rhythm and No murmurs present (Cardio) RATE: regular rate RHYTHM: regular rhythm GI: COMMON NORMALS: Soft to palpation and No hepatosplenomegaly present AUSCULTATION: Yes normoactive bowel sounds PALPATION: Yes Soft to palpation, No Tenderness to palpation present (GI), No Guarding due to palpation present (GI) and Yes No hepatosplenomegaly present Extremity: COMMON NORMALS: capillary refill normal, no clubbing, cyanosis or edema, no calf tenderness and no pedal edema OTHER: No redness erythema palpable fluctuant mass on the medial aspect of the left distal thigh no significant tenderness. Neuro: SENSORIUM/ORIENTATION: Yes oriented to person, Yes oriented to place and Yes oriented to time Skin: COMMON NORMALS: no rashes or lesions noted GENERAL SKIN EXAM: no rashes or lesions noted Course Vital Signs: Vital signs: Vital Signs Temperature 98.1 F 12/14/24 09:58 Pulse Rate 66 12/14/24 09:58 Respiratory Rate 16 12/14/24 09:58 Blood Pressure 126/77 12/14/24 09:58 Pulse Oximetry 96 12/14/24 09:58 Oxygen Delivery Me thod Room Air 12/14/24 09:58 MDM - Extremity (Nontraumatic) Medical Decision Making Ultrasound shows appears to be hematoma her white count is normal complete the antibiotics previously prescribed discussed possibly referring to surgery for drainage however it is hematoma generally we do not drain these. He did rather just observe for now. Return if he has fever sweats chills or develops redness in the area of concern Medical Records I reviewed the patient's medical records. Lab Data I reviewed the patient's lab results. 12/14/24 10:08 12/14/24 10:08 Radiology Impressions Soft Tissue Ultrasound 12/14/24 10:52 IMPRESSION: Complex collection in the subcu soft tissues of the medial LEFT thigh measures 4.3 x 4.8 x 2.1 cm. Most consistent with a hematoma. Additional etiologies to consider are seroma or abscess but these are thought much less likely. Laboratory Results WBC 5.59 10^3/uL (3.29-11.43) 12/14/24 10:08 RBC 4.48 10^6/uL (3.85-5.65) 12/14/24 10:08 Hgb 13.20 g/dL (11.27-16.99) 12/14/24 10:08 Hct 39.2 % (37-53) 12/14/24 10:08 MCV 87.5 fl (82-101) 12/14/24 10:08 MCH 29.5 pg (27-33) 12/14/24 10:08 MCHC 33.7 g/dL (30-55) 12/14/24 10:08 RDW 12.4 % (12.1-15.1) 12/14/24 10:08 Plt Count 237 10^3/cmm (157-399) 12/14/24 10:08 MPV 9.0 fL (7.4-10.4) 12/14/24 10:08 Neut % (Auto) 56.9 % 12/14/24 10:08 Lymph % (Auto) 30.4 % 12/14/24 10:08 [place] % (Auto) 8.4 % 12/14/24 10:08 Eos % (Auto) 2.9 % 12/14/24 10:08 Baso % (Auto) 0.9 % 12/14/24 10:08 Neut # (Auto) 3.18 10^3/uL (1.8-7.7) 12/14/24 10:08 Lymph # (Auto) 1.7 10^3/uL (0.8-4.8) 12/14/24 10:08 [place] # (Auto) 0.5 10^3/uL (0.2-0.9) 12/14/24 10:08 Eos # (Auto) 0.2 10^3/uL (0.0-0.8) 12/14/24 10:08 Baso # (Auto) 0.1 10^3/uL (0.0-0.1) 12/14/24 10:08 Nucleated RBC % (auto) 0 % 12/14/24 10:08 Nucleated RBCs # 0.0 /100WBC 12/14/24 10:08 Sodium 139 mmol/L (136-145) 12/14/24 10:08 Potassium 4.1 mmol/L (3.5-5.1) 12/14/24 10:08 Chloride 102 mmol/L (98-107) 12/14/24 10:08 Carbon Dioxide 26 mmol/L (22-29) 12/14/24 10:08 Anion Gap 15.1 (5-19) 12/14/24 10:08 BUN 16 mg/dL (8-23) 12/14/24 10:08 Creatinine 0.9 mg/dL (0.7-1.2) 12/14/24 10:08 GFR Calculation Not Reportable 12/14/24 10:08 Glucose 118 mg/dL (65-115) H 12/14/24 10:08 Calculated Osmolality 290 mOsm/kg (285-295) 12/14/24 10:08 Calcium 9.5 mg/dL (8.5-10.5) 12/14/24 10:08 Total Bilirubin 0.6 mg/dL (0.15-1.2) 12/14/24 10:08 AST 16 U/L (0-40) 12/14/24 10:08 ALT 10 U/L (0-41) 12/14/24 10:08 Alkaline Phosphatase 70 U/L (40-130) 12/14/24 10:08 Total Protein 7.4 g/dL (6.6-8.7) 12/14/24 10:08 Albumin 4.6 g/dL (3.5-5.2) 12/14/24 10:08 Globulin 2.8 g/dL (1.3-4.6) 12/14/24 10:08 All radiology interpretation(s) finalized by discharge Discharge Plan Discharge Patient Disposition: Home Clinical Impression: Hematoma of left thigh Condition: Stable Prescriptions: No Action ipratropium-albuterol 0.5 mg-3 mg(2.5 mg base)/3 mL solution for nebulization 3 ml inhalation Q6H PRN (Reason: wheezing) Qty: 180 5RF simvastatin 40 mg tablet 20 mg PO QPM tamsulosin [Flomax] 0.4 mg capsule 0.4 mg PO QPM cholecalciferol (vitamin D3) 1,000 unit capsule 1,000 unit PO DAILY multivitamin Tablet 1 tab PO QAM levothyroxine [Synthroid] 125 mcg tablet 125 mcg PO DAILY lisinopril-hydrochlorothiazide 20-12.5 mg tablet 1 tab PO DAILY albuterol sulfate 90 mcg/actuation aerosol powdr breath activated 2 inh INHALATION Q6H PRN (Reason: Shortness Of Breath) Claritin RediTabs 5 mg tablet,disintegrating 5 mg PO BID Qty: 60 3RF montelukast [Singulair] 10 mg tablet 10 mg PO DAILY Qty: 30 3RF (DME) cock up splint See Rx Instructions .Route .MEDSUPPLY Qty: 2 0RF Rx Instructions: As directed budesonide-formoterol [Symbicort] 160-4.5 mcg/actuation HFA aerosol inhaler 2 puff inhalation BID Qty: 10.2 3RF betamethasone dipropionate 0.05 % cream See Rx Instructions .ROUTE .COMPLEX Qty: 45 2RF Dose Instruction: APPLY LIGHTLY TO AFFECTED AREA(S) TWICE A DAY FOR SKIN IRRITATION. Rx Instructions: APPLY LIGHTLY TO AFFECTED AREA(S) TWICE A DAY FOR SKIN IRRITATION. clotrimazole 1 % cream See Rx Instructions .ROUTE .COMPLEX Qty: 30 2RF Dose Instruction: APPLY TOPICALLY TO AFFECTED AREA(S) TWICE A DAY (EXTERNAL USE ONLY) Rx Instructions: APPLY TOPICALLY TO AFFECTED AREA(S) TWICE A DAY (EXTERNAL USE ONLY) (DME) L3221 Orthopedic shoes and L3010 Soft,MARIYA top cover, accomodative cutout for 5 met head bilaterally See Rx Instructions .Route .MEDSUPPLY Qty: 1 0RF Rx Instructions: As directed to [place] oxycodone-acetaminophen 10-325 mg tablet 1 tab PO QID PRN (Reason: Pain) fluticasone propionate 50 mcg/actuation spray,suspension 1 spray INTRANASAL DAILY PRN (Reason: allergy symptoms) diclofenac sodium [Voltaren Arthritis Pain] 1 % gel 4 g topical QID PRN (Reason: pain) Rx Instructions: apply to single knee, ankle, foot; for foot includes sole/toes/top of foot Spiriva Respimat 1.25 mcg/actuation mist 2 puff inhalation DAILY PRN (Reason: Shortness Of Breath) Discharge Orders: Discharge ED (Routine); Ordered 12/14/24 Ordered By: Edin Grant Referrals: Francisco Hirsch, [Primary Care Provider, Emergency Medicine] Discharge Diet: Usual diet Discharge Activity: Increase activity as tolerated Patient Instructions: Opioid Safety, Pain Management, Patient Portal & [place] Instructions Activity Restrictions/Additional Instructions: Thank you for choosing [facility] for your healthcare needs today. It is very important that you follow up as instructed or that you return to the Emergency Department should you have concerns or if your condition changes or worsens in any way. Emergency department visits are focused on emergent conditions, in some cases you may require further evaluation on an outpatient basis. You were seen in the emergency room with a swollen area in your left thigh. On ultrasound this appears to be hematoma your white count is normal. Complete the course of antibiotics you are previously prescribed. Follow-up with your primary care doctor. (Please note that included in your discharge packet is information concerning opioid safety and pain management. This information is given to all patients were discharged from the ER regardless of their discharge diagnosis or the medicines they usually take or are prescribed.) Print Language: Georgian Coding Level of Care Code ED Physiatrist for Anthony Ruiz
--- NOTE | 2024-12-14 11:22 | PC.PHAR ---
[facility] is [facility] but he and know his medications
== END 2024-12-14 12:33 | disposition home or self-care (01) ==
PROVIDERS: Emergency Provider Family Medicine; PCP Emergency Medicine Emergency Medical Services
DX: S70.12XA Contusion of left thigh, initial encounter (principal); Z87.891 Personal history of nicotine dependence; X58.XXXA Exposure to other specified factors, initial encounter
CPT/HCPCS: 36415; 76882; 80053; 85025; 87040; 99284

== ENCOUNTER → 2025-01-13 08:58 | Outpatient (BNVA) | payer OTHER, SELFPAY | PROVIDERS: PCP Emergency Medicine Emergency Medical Services; Visit Provider Podiatrist Foot & Ankle Surgery | DX: M77.41 Metatarsalgia, right foot (principal); M77.42 Metatarsalgia, left foot; M21.621 Bunionette of right foot; M21.622 Bunionette of left foot; B35.3 Tinea pedis; G60.9 Hereditary and idiopathic neuropathy, unspecified | CPT/HCPCS: 73630; 99213 ==